=== PATIENT | female | born 1960 | race Caucasian/White ===

== ENCOUNTER 2021-05-14 17:30 | Inpatient (IN) | payer BC ==
[2021-05-14] MEDS ORDERED: ACETAMINOPHEN TAB 500 MG TAB PO STA (17:41)
[2021-05-14 18:09] LABS: Basophils # (A) 0.1 k/uL (0-0.2); Basophils % (A) 1 %; Eosinophils % (A) 0 %; HCT 44.7 % (34.0-46.0); HGB 14.6 gm/dL (11.4-16.0); Lymphocytes # (A) 0.7 k/uL (1.0-4.8); Lymphocytes % (A) 13 %; MCH 32.4 pg (25.0-35.0); MCHC 32.8 g/dL (31.0-37.0); MCV 98.7 fL (80.0-100.0); Mean Platelet Volume 8.6; Monocytes # (A) 0.6 k/uL (0-1.0); Monocytes % (A) 11 %; Neutrophils # (A) 3.6 k/uL (1.3-7.7); Neutrophils % (A) 71 %; Platelet Count 191 k/uL (150-450); Poikilocytosis Slight; RBC 4.53 m/uL (3.80-5.40); RDW 15.2 % (11.5-15.5)
[2021-05-14 18:11] LABS: Appearance,Urine Cloudy (Clear); Bilirubin,Urine Negative (Negative); Blood,Urine Trace (Negative); Color,Urine Yellow; Glucose,Urine (UA) Negative (Negative); Hyaline Casts,Urine 7 /lpf (0-2); Ketones,Urine Negative (Negative); Leukocyte Esterase,Urine Negative (Negative); Mucus,Urine Rare /hpf; Nitrite,Urine Negative (Negative); PH, Urine 5.5 (5.0-8.0); Protein,Urine 1+ (Negative); RBC,Urine 2 /hpf (0-5); Specific Gravity,Urine 1.017 (1.001-1.035); WBC,Urine 3 /hpf (0-5)
--- NOTE | 2021-05-14 18:11 | ED ---
General Adult HPI - General Chief complaint: Altered Mental Status Stated complaint: AMS Time Seen by Provider: 05/14/21 17:37 Source: patient, EMS Mode of arrival: EMS - History of Present Illness Initial comments: Dictation was produced using [employer]US dictation software. please excuse any grammatical, word or spelling errors. Chief Complaint: 61-year-old feel presents to the emergency department for altered mental status History of Present Illness: Patient 61-year-old female she is brought in by EMS from home. Patient lives with a roommate. Roommate called EMS. According to EMS patient had low oxygen and requiring oxygen therapy. Patient is too let hargic to provide history present illness. According to nurse received report from EMS EMS was called by . Upon EMS arrival they found the patient was satting in the low 80s and showing signs of respiratory distress. She was also febrile at 10 3F. Unable to obtain due to patient's medical status. PHYSICAL EXAM: General Impression: Dry mucous membranes, lethargic, obese HEENT: Normocephalic atraumatic, extra-ocular movements intact, pupils equal and reactive to light bilaterally Cardiovascular: Heart regular rate and rhythm Chest: Able to complete full sentences, no retractions, no tachypnea Abdomen: abdomen soft, non-tender, non-distended, no organomegaly Musculoskeletal: Pulses present and equal in all extremities, no peripheral edema Motor: no focal deficits noted Neurological: no focal motor or sensory deficits noted Skin: Intact with no visualized rashes ED course: 61-year-old female presents to the emergency department for pyrexia, altered mental status, lethargy hypoxia. Vital signs upon arrival shows temperature 102.5, heart rate 114, respiratory rate of 30, icy saturation 89 on 15 L nonrebreather. BiPAP was ordered. at the bedside states that earlier today he noticed that patient was difficult to wake up. Also reports that patient has been having EKG interpretation: Ventricular rate 150, sinus tachycardia,. Interval 150, QRS 80, QTC 470. No NM prolongation, no QTC prolongation, no ST or T-wave changes noted. No old EKG for comparison Soon also reports that has been seemingly sick since Shelli. Laboratory evaluation obtained. CBC is unremarkable. Coag panel is within acceptable limits. D-dimer 0.87. Metabolic panel is within acceptable limits troponins are 0.456. Rest of blood work is unremarkable. Patient described virus positive. Patient is elevated troponin is unclear what is causing patient's elevated troponin. D-dimer appears to be within reasonable limits considering she is COVID-19 positive with significant x-ray findings. Chest x- ray shows interstitial [place] is an bibasilar opacities. EKG does not show any signs of ischemia or infarction. Patient reevaluated at the bedside she does appear to be more improved. She does appear to be alert. She has stable vitals and is maintaining good oxygen levels on BiPAP. Patient be admitted. Case discussed with [facility] hospitalist group. Proc[employer]ment Forester be on consult. Patient given 10 mg of IV Decadron. - Related Data Home Medications Medication Instructions Recorded Confirmed No Known Home Medications 05/14/21 05/14/21 Allergies Allergy/AdvReac Type Severity Reaction Status Date / Time No Known Allergies Allergy Verified 05/14/21 18:58 Review of Systems ROS Statement: Those systems with pertinent positive or pertinent negative responses have been documented in the HPI. ROS Other: All systems not noted in ROS Statement are negative. Past Medical History Past Medical History: Hypertension History of Any Multi-Drug Resistant Organisms: None Reported Past Surgical History: Unable to Obtain Past Psychological History: No Psychological Hx Reported Smoking Status: Never smoker Past Alcohol Use History: None Reported Past Drug Use History: None Reported Course Vital Signs 05/14/21 17:31 Temperature 102.5 F H Pulse Rate 114 H Respiratory 38 H Rate Blood Pressure 104/77 O2 Sat by Pulse 89 L Oximetry Medical Decision Making - Lab Data Result diagrams: 05/14/21 17:53 05/14/21 17:53 Lab Results 05/14/21 05/14/21 05/14/21 Range/Units 17:44 17:53 17:53 WBC 5.0 (3.8-10.6) k/uL RBC 4.53 (3.80-5.40) m/uL Hgb 14.6 (11.4-16.0) gm/dL Hct 44.7 (34.0-46.0) % MCV 98.7 (80.0-100.0) fL MCH 32.4 (25.0-35.0) pg MCHC 32.8 (31.0-37.0) g/dL RDW 15.2 (11.5-15.5) % Plt Count 191 (150-450) k/uL MPV 8.6 Neutrophils % 71 % Lymphocytes % 13 % Monocytes % 11 % Eosinophils % 0 % Basophils % 1 % Neutrophils # 3.6 (1.3-7.7) k/uL Lymphocytes # 0.7 L (1.0-4.8) k/uL Monocytes # 0.6 (0-1.0) k/uL Eosinophils # 0.0 (0-0.7) k/uL Basophils # 0.1 (0-0.2) k/uL Poikilocytosis Slight PT 10.3 (9.0-12.0) sec INR 1.0 (<1.2) APTT 24.2 (22.0-30.0) sec D-Dimer 0.87 H (<0.60) mg/L FEU Sodium (137-145) mmol/L Potassium (3.5-5.1) mmol/L Chloride (98-107) mmol/L Carbon Dioxide (22-30) mmol/L Anion Gap mmol/L BUN (7-17) mg/dL Creatinine (0.52-1.04) mg/dL Est GFR (CKD-EPI)AfAm (>60 ml/min/1.73 sqM) Est GFR (CKD-EPI)NonAf (>60 ml/min/1.73 sqM) Glucose (74-99) mg/dL Plasma Lactic Acid Fabian (0.7-2.0) mmol/L Calcium (8.4-10.2) mg/dL Magnesium (1.6-2.3) mg/dL Total Bilirubin (0.2-1.3) mg/dL AST (14-36) U/L ALT (4-34) U/L Alkaline Phosphatase (38-126) U/L Troponin I (0.000-0.034) ng/mL C-Reactive Protein (<1.0) mg/dL NT-Pro-B Natriuret Pep pg/mL Total Protein (6.3-8.2) g/dL Albumin (3.5-5.0) g/dL Urine Color Urine Appearance (Clear) Urine pH (5.0-8.0) Ur Specific [place] (1.001-1.035) Urine Protein (Negative) Urine Glucose (UA) (Negative) Urine Ketones (Negative) Urine Blood (Negative) Urine Nitrite (Negative) Urine Bilirubin (Negative) Urine Urobilinogen (<2.0) mg/dL Ur Leukocyte Esterase (Negative) Urine RBC (0-5) /hpf Urine WBC (0-5) /hpf Hyaline Casts (0-2) /lpf Urine Mucus (None) /hpf Influenza Type A (PCR) Not Detected (Not Detectd) Influenza Type B (PCR) Not Detected (Not Detectd) RSV (PCR) Not Detected (Not Detectd) SARS-CoV-2 (PCR) Detected A (Not Detectd) 05/14/21 05/14/21 05/14/21 Range/Units 17:53 17:53 17:53 WBC (3.8-10.6) k/uL RBC (3.80-5.40) m/uL Hgb (11.4-16.0) gm/dL Hct (34.0-46.0) % MCV (80.0-100.0) fL MCH (25.0-35.0) pg MCHC (31.0-37.0) g/dL RDW (11.5-15.5) % Plt Count (150-450) k/uL MPV Neutrophils % % Lymphocytes % % Monocytes % % Eosinophils % % Basophils % % Neutrophils # (1.3-7.7) k/uL Lymphocytes # (1.0-4.8) k/uL Monocytes # (0-1.0) k/uL Eosinophils # (0-0.7) k/uL Basophils # (0-0.2) k/uL Poikilocytosis PT (9.0-12.0) sec INR (<1.2) APTT (22.0-30.0) sec D-Dimer (<0.60) mg/L FEU Sodium 139 (137-145) mmol/L Potassium 4.4 (3.5-5.1) mmol/L Chloride 101 (98-107) mmol/L Carbon Dioxide 25 (22-30) mmol/L Anion Gap 13 mmol/L BUN 32 H (7-17) mg/dL Creatinine 1.21 H (0.52-1.04) mg/dL Est GFR (CKD-EPI)AfAm 55 (>60 ml/min/1.73 sqM) Est GFR (CKD-EPI)NonAf 48 (>60 ml/min/1.73 sqM) Glucose 118 H (74-99) mg/dL Plasma Lactic Acid Fabian 1.2 (0.7-2.0) mmol/L Calcium 8.3 L (8.4-10.2) mg/dL Magnesium 1.8 (1.6-2.3) mg/dL Total Bilirubin 0.5 (0.2-1.3) mg/dL AST 82 H (14-36) U/L ALT 32 (4-34) U/L Alkaline Phosphatase 71 (38-126) U/L Troponin I 0.456 H* (0.000-0.034) ng/mL C-Reactive Protein 4.9 H (<1.0) mg/dL NT-Pro-B Natriuret Pep pg/mL Total Protein 6.9 (6.3-8.2) g/dL Albumin 3.6 (3.5-5.0) g/dL Urine Color Urine Appearance (Clear) Urine pH (5.0-8.0) Ur Specific [place] (1.001-1.035) Urine Protein (Negative) Urine Glucose (UA) (Negative) Urine Ketones (Negative) Urine Blood (Negative) Urine Nitrite (Negative) Urine Bilirubin (Negative) Urine Urobilinogen (<2.0) mg/dL Ur Leukocyte Esterase (Negative) Urine RBC (0-5) /hpf Urine WBC (0-5) /hpf Hyaline Casts (0-2) /lpf Urine Mucus (None) /hpf Influenza Type A (PCR) (Not Detectd) Influenza Type B (PCR) (Not Detectd) RSV (PCR) (Not Detectd) SARS-CoV-2 (PCR) (Not Detectd) 05/14/21 05/14/21 Range/Units 17:53 17:53 WBC (3.8-10.6) k/uL RBC (3.80-5.40) m/uL Hgb (11.4-16.0) gm/dL Hct (34.0-46.0) % MCV (80.0-100.0) fL MCH (25.0-35.0) pg MCHC (31.0-37.0) g/dL RDW (11.5-15.5) % Plt Count (150-450) k/uL MPV Neutrophils % % Lymphocytes % % Monocytes % % Eosinophils % % Basophils % % Neutrophils # (1.3-7.7) k/uL Lymphocytes # (1.0-4.8) k/uL Monocytes # (0-1.0) k/uL Eosinophils # (0-0.7) k/uL Basophils # (0-0.2) k/uL Poikilocytosis PT (9.0-12.0) sec INR (<1.2) APTT (22.0-30.0) sec D-Dimer (<0.60) mg/L FEU Sodium (137-145) mmol/L Potassium (3.5-5.1) mmol/L Chloride (98-107) mmol/L Carbon Dioxide (22-30) mmol/L Anion Gap mmol/L BUN (7-17) mg/dL Creatinine (0.52-1.04) mg/dL Est GFR (CKD-EPI)AfAm (>60 ml/min/1.73 sqM) Est GFR (CKD-EPI)NonAf (>60 ml/min/1.73 sqM) Glucose (74-99) mg/dL Plasma Lactic Acid Fabian (0.7-2.0) mmol/L Calcium (8.4-10.2) mg/dL Magnesium (1.6-2.3) mg/dL Total Bilirubin (0.2-1.3) mg/dL AST (14-36) U/L ALT (4-34) U/L Alkaline Phosphatase (38-126) U/L Troponin I (0.000-0.034) ng/mL C-Reactive Protein (<1.0) mg/dL NT-Pro-B Natriuret Pep 819 pg/mL Total Protein (6.3-8.2) g/dL Albumin (3.5-5.0) g/dL Urine Color Yellow Urine Appearance Cloudy H (Clear) Urine pH 5.5 (5.0-8.0) Ur Specific [place] 1.017 (1.001-1.035) Urine Protein 1+ H (Negative) Urine Glucose (UA) Negative (Negative) Urine Ketones Negative (Negative) Urine Blood Trace H (Negative) Urine Nitrite Negative (Negative) Urine Bilirubin Negative (Negative) Urine Urobilinogen 2.0 (<2.0) mg/dL Ur Leukocyte Esterase Negative (Negative) Urine RBC 2 (0-5) /hpf Urine WBC 3 (0-5) /hpf Hyaline Casts 7 H (0-2) /lpf Urine Mucus Rare H (None) /hpf Influenza Type A (PCR) (Not Detectd) Influenza Type B (PCR) (Not Detectd) RSV (PCR) (Not Detectd) SARS-CoV-2 (PCR) (Not Detectd) Critical Care Time Critical Care Time: Yes Total Critical Care Time: 33 Disposition Clinical Impression: COVID-19 Disposition: ADMITTED IP TO THIS HOSP Condition: Critical Referrals: None,Stated [Primary Care Provider] - 1-2 days
--- NOTE | 2021-05-14 18:17 | XR ---
EXAMINATION TYPE: XR chest 1V portable DATE OF EXAM: 05/14/2021 COMPARISON: NONE HISTORY: 61 years Female. STUDY INDICATION GIVEN: hypoxia . TECHNIQUE: AP upright chest radiograph IMPRESSION: Moderate cardiomegaly bilateral interstitial opacities suggestive of congestive heart failure. Patchy-like bibasilar opacities concerning for superimposed infection. Small to moderate right pleural effusion. No large left-sided effusion. No pneumothorax. No acute osseous abnormalities seen.
[2021-05-14 18:29] LABS: Albumin 3.6 g/dL (3.5-5.0); C Reactive Protein 4.9 mg/dL (<1.0); Calcium 8.3 mg/dL (8.4-10.2); Magnesium 1.8 mg/dL (1.6-2.3); Potassium 4.4 mmol/L (3.5-5.1); Total Bilirubin 0.5 mg/dL (0.2-1.3); Total Protein 6.9 g/dL (6.3-8.2)
[2021-05-14 18:37] LABS: Partial Thromboplastin Time 24.2 sec (22.0-30.0); Prothrombin Time 10.3 sec (9.0-12.0)
[2021-05-14] MEDS ORDERED: DEXAMETHASONE SOD PHOSPHATE 10 MG/ML 1 ML VIAL IV STA (18:51)
[2021-05-14] MEDS ORDERED: HEPARIN SODIUM 1,000 UN/ML (10ML VL) IV ONE (19:13)
[2021-05-14] MEDS ORDERED: ASPIRIN 81 MG PO STA (19:15)
[2021-05-14] MEDS ORDERED: ACETAMINOPHEN TAB 325 MG TAB PO PRN (19:16)
[2021-05-14] MEDS ORDERED: NALOXONE 0.4 MG/ML 1 ML VIAL IV PRN (19:16)
[2021-05-14] MEDS: SODIUM CHLORIDE 0.9% 1,000 ML IV SCH (20:20)
[2021-05-14] MEDS: HEPARIN SOD,PORK IN 0.45% NACL 25,000 UNIT in 0.45% NACL 1 250ML.BAG IV SCH (20:22)
[2021-05-15] MEDS: HEPARIN SODIUM 1,000 UN/ML (10ML VL) IV PRN ×2 (03:51→20:16)
[2021-05-15 09:42] LABS: Chol/HDL Ratio 6.67 Ratio; LDL Cholesterol,Calculated 105.8 mg/dL (0.0-131.0)
[2021-05-15 13:14] LABS: C Reactive Protein 4.4 mg/dL (<1.0)
[2021-05-15] MEDS: ASCORBIC ACID 500 MG TAB PO SCH (14:18)
[2021-05-15] MEDS: ZINC SULFATE 220 MG CAP PO SCH (14:19)
[2021-05-15] MEDS: BARICITINIB 2 MG TABLET PO SCH (14:19)
[2021-05-15] MEDS: CHOLECALCIFEROL 25 MCG (1000 IU) TABLET PO SCH (14:19)
[2021-05-15] MEDS: DEXAMETHASONE SOD PHOSPHATE 10 MG/ML 1 ML VIAL IVP SCH (14:19)
[2021-05-15 14:23] LABS: Glucose,Whole Blood 114 mg/dL (75-99)
--- NOTE | 2021-05-15 17:25 | P.CNPUL ---
History of Present Illness Consult date: 05/15/21 Reason for consult: dyspnea, pneumonia History of present illness: This is a 61-year-old female patient, obese with a BMI of 46.7, who is currently Hospital as for COVID 19 related pneumonia. Note that the patient is vaccinated earlier this year and she received a [employer] single dose vaccine. Around 2 weeks ago, specifically around 13 days ago, the patient started having COVID 19 related symptoms. She started having some increased cough and progressive worsening shortness of breath. Her symptoms started on 05/02/2021. She was getting progressively more worse and the patient was brought in to the burst department by EMS. The patient was found to be lethargic and weak and short of breath. She was quite hypoxic and she was febrile with a temperature 103F. Immediately, the patient was placed on a BiPAP at a pressure of 12/6 cm of water and FiO2 is currently at 70%. Note that the patient was tachycardic and tachypneic at time of admission which has improved since. The patient a white cell count of 5 with a hemoglobin of 14.6, albumin was at 32 with a creatinine of 1.2. She had normal correlation profile, normal d-dimer was 0.87, LFTs showed an AST of 82, ALT of 32, alkaline phosphatase of 71 with a troponin level of 0.456 at time of admission. CRP level was at 4.9, total protein was at 6.9, electrolytes are warm within normal limits. The patient had a UA that was essentially showing +1 protein otherwise negative. COVID 19 testing was positive. Note that the subsequent troponins came back at 0.683 and 0.561 respectively. The patient is currently on Decadron 6 mg IV every 24 hours. The patient is also on IV heparin. She is comfortable on the BiPAP. No altered mentation. Review of Systems Constitutional: Reports fatigue, Reports fever, Reports lethargy, Reports weakness Eyes: denies as per HPI, denies blurred vision, denies bulging eye, denies decreased vision, denies diplopia, denies discharge, denies dry eye, denies irritation, denies itching, denies pain, denies photophobia, denies loss of peripheral vision, denies loss of vision, denies tunnel vision/blind spots Ears: deny: decreased hearing, ear discharge, earache, tinnitus Ears, nose, mouth and throat: Reports as per HPI Breasts: absent: as per HPI, change in shape, gynecomastia, masses, nipple discharge, pain, skin changes, swelling Cardiovascular: Reports as per HPI, Reports decreased exercise tolerance, Reports dyspnea on exertion Respiratory: Reports cough, Reports dyspnea Gastrointestinal: Reports as per HPI Genitourinary: Reports as per HPI Menstruation: Reports as per HPI Musculoskeletal: Reports as per HPI Musculoskeletal: absent: ankle pain, ankle stiffness, ankle swelling Integumentary: Reports as per HPI Neurological: Reports as per HPI Psychiatric: Reports as per HPI Endocrine: Reports as per HPI, Reports fatigue Hematologic/Lymphatic: Reports as per HPI Allergic/Immunologic: Reports as per HPI Past Medical History Past Medical History: Hypertension Additional Past Medical History / Comment(s): Obesity, History of Any Multi-Drug Resistant Organisms: None Reported Past Surgical History: Unable to Obtain Past Psychological History: No Psychological Hx Reported Smoking Status: Never smoker Past Alcohol Use History: None Reported Past Drug Use History: None Reported Medications and Allergies Home Medications Medication Instructions Recorded Confirmed Type No Known Home Medications 05/14/21 05/14/21 History Allergies Allergy/AdvReac Type Severity Reaction Status Date / Time No Known Allergies Allergy Verified 05/14/21 18:58 Physical Exam Vitals: Vital Signs Temp Pulse Pulse Resp BP BP Pulse Ox 05/15/21 11:04 98.2 F 69 17 118/71 93 L 05/15/21 07:45 98.1 F 65 20 126/73 94 L 05/15/21 05:18 99.1 F 67 18 140/78 95 05/15/21 03:11 19 05/15/21 02:19 98.6 F 88 19 146/78 95 05/15/21 01:00 68 28 H 120/70 05/15/21 00:00 72 26 H 124/72 95 05/14/21 23:00 78 18 112/87 92 L 05/14/21 22:19 99.1 F 80 20 120/70 92 L 05/14/21 20:16 84 24 120/62 90 L 05/14/21 17:31 102.5 F H 114 H 38 H 104/77 89 L Intake and Output 05/14/21 05/15/21 05/15/21 22:59 06:59 14:59 Intake Total 72.833 400 Output Total 700 Balance -627.167 400 Intake: Intake, IV Titration 72.833 Amount Heparin Sod,Pork in 0.45% 72.833 NaCl 25,000 unit In 0.45 % NaCl 1 250ml.bag @ 8. 105 UNITS/KG/HR 10 mls/hr IV .Q24H [facility] Rx#: [id number] Oral 0 400 Output: Urine 700 Other: Weight 123.377 kg 123.377 kg General Impression: Dry mucous membranes, lethargic, obese, breathing is much more comfortable as the patient's current antibiotic impression of 04/21 and the means of water with an FiO2 of 70%. She is able to tolerate a full face BiPAP mask. Head exam was generally normal. There was no scleral icterus or corneal arcus. Mucous membranes were moist. HEENT: Normocephalic atraumatic, extra-ocular movements intact, pupils equal and reactive to light bilaterally Cardiovascular: Heart regular rate and rhythm Chest: Lung sounds reveal equal and symmetrical breath sounds bilaterally with some bibasilar crackles Abdomen: abdomen soft, non-tender, non-distended, no organomegaly Musculoskeletal: Pulses present and equal in all extremities, no peripheral edema Motor: no focal deficits noted Neurological: no focal motor or sensory deficits noted Skin: Intact with no visualized rashes Results - Laboratory Findings CBC and BMP: 05/14/21 17:53 05/14/21 17:53 PT/INR, D-dimer PT 10.3 sec (9.0-12.0) 05/14/21 17:53 INR 1.0 (<1.2) 05/14/21 17:53 D-Dimer 0.87 mg/L FEU (<0.60) H 05/14/21 17:53 Abnormal lab findings: Abnormal Labs 05/14/21 05/14/21 05/14/21 17:44 17:53 17:53 Lymphocytes # 0.7 L APTT D-Dimer 0.87 H BUN Creatinine Glucose Calcium AST Troponin I C-Reactive Protein Triglycerides HDL Cholesterol Urine Appearance Urine Protein Urine Blood Hyaline Casts Urine Mucus SARS-CoV-2 (PCR) Detected A 05/14/21 05/14/21 05/14/21 17:53 17:53 17:53 Lymphocytes # APTT D-Dimer BUN 32 H Creatinine 1.21 H Glucose 118 H Calcium 8.3 L AST 82 H Troponin I 0.456 H* C-Reactive Protein 4.9 H Triglycerides HDL Cholesterol Urine Appearance Cloudy H Urine Protein 1+ H Urine Blood Trace H Hyaline Casts 7 H Urine Mucus Rare H SARS-CoV-2 (PCR) 05/14/21 05/14/21 05/15/21 17:53 21:33 00:19 Lymphocytes # APTT D-Dimer BUN Creatinine Glucose Calcium AST Troponin I 0.683 H* 0.561 H* C-Reactive Protein Triglycerides 168.00 H HDL Cholesterol 24.60 L Urine Appearance Urine Protein Urine Blood Hyaline Casts Urine Mucus SARS-CoV-2 (PCR) 05/15/21 09:10 Lymphocytes # APTT 64.1 H D-Dimer BUN Creatinine Glucose Calcium AST Troponin I C-Reactive Protein Triglycerides HDL Cholesterol Urine Appearance Urine Protein Urine Blood Hyaline Casts Urine Mucus SARS-CoV-2 (PCR) - Diagnostic Findings Chest x-ray: image reviewed Assessment and Plan Plan: 1 acute hypoxic respiratory failure secondary COVID 19 related pneumonia. The patient symptoms started on 05/02/2021 and the patient progressive decline in her rest her status since. The patient is been vaccinated with [employer] vaccine earlier this year. The patient is coming in with worsening shortness of breath and hypoxic respiratory failure currently on a BiPAP at a pressure of 12/6 cm of water and FiO2 of 70%. 2 acute coronary event related pneumonia symptoms started on 05/02/2021 3 generalized weakness and constant pressure symptoms secondary to above 4 obesity with a BMI of 46.7 5 mild transaminitis secondary to above 6 abnormal troponin, troponin leak essentially related to oxygen mismatch due to COVID 19 related pneumonia. Patient's free of any chest pain, and EKG showing some nonspecific ST-T abnormalities without any acute ischemic changes. Cardiac rhythm is sinus. 7 hypertension Plan Continue BiPAP for now with pressure of 12/7 FiO2 of 70%, and FiO2 can be titrated down to maintain a saturation above 90% Continue Decadron significant every 24 hours Start the patient on Baricitinib protocol Pro-calcitonin level will be sent IV heparin pending cardiology consultation Obtain 2-D echocardiogram Check inflammatory markers including LDH CRP Start the patient vitamin C and vitamin D and zinc supplements We'll continue to follow make further recommendations based on her progress.
--- NOTE | 2021-05-16 00:32 | P.HPIM ---
History of Present Illness H&P Date: 05/16/21 Chief Complaint: Generalized weakness Patient is a 61-year-old female with a known history of hypertension, morbid obesity with BMI 46.7 presented to ER with complaints of cough congestion worsening shortness of breath. Patient symptoms started about 2 weeks ago. She did take Raúl & Raúl vaccine. Patient was brought to the hospital by EMS. Patient lives with a roommate. Upon arrival patient was found to be hypoxic with pulse ox in the 80s and was in respiratory distress. T-max was 103 F. Patient was placed on 100% nonrebreather and BiPAP. Chest x-ray showed moderate cardiomegaly, bilateral interstitial opacities suggestive of CHF. Patchy-like bibasilar opacities concerning for superimposed infection. EKG showed sinus tachycardia with premature atrial complexes Laboratory data showed WBC 5.0 hemoglobin 14.6 and platelets 191 lymphocytes 0.7 D-dimer is 0.87 BUN 3020 creatinine 1.21 Troponin 0 0.456, 0.683 and 0.561 Urinalysis showed cloudy with 1+ protein and negative leukocyte esterase COVID-19 PCR detected. Review of Systems Constitutional: Patient does have fever chills and generalized weakness and lethargy.. Abdomen: Patient denied nausea vomiting and diarrhea and abdominal pain. Cardiovascular: Patient denies any chest pain or short of breath no palpitations. Respiratory: Patient does have cough congestion and shortness of breath. Neurologic: Patient denied any numbness or tingling headache. Musculoskeletal: Patient denies any complaints of joint swelling or deformity. Skin: Negative Psychiatric: Negative Endocrine: No heat or cold intolerance. No recent weight gain. Genitourinary: No dysuria or hematuria. All other 14 point ROS negative except the above Past Medical History Past Medical History: Hypertension Additional Past Medical History / Comment(s): Obesity, History of Any Multi-Drug Resistant Organisms: None Reported Past Surgical History: Unable to Obtain Past Psychological History: No Psychological Hx Reported Smoking Status: Never smoker Past Alcohol Use History: None Reported Past Drug Use History: None Reported Medications and Allergies Home Medications Medication Instructions Recorded Confirmed Type No Known Home Medications 05/14/21 05/14/21 History Allergies Allergy/AdvReac Type Severity Reaction Status Date / Time No Known Allergies Allergy Verified 05/14/21 18:58 Physical Exam Vitals: Vital Signs Temp Pulse Pulse Resp BP BP Pulse Ox 05/15/21 23:56 98.1 F 82 20 112/67 91 L 05/15/21 21:06 94 L 05/15/21 20:19 97.7 F 82 18 120/67 94 L 05/15/21 18:49 97.8 F 68 17 101/67 93 L 05/15/21 11:04 98.2 F 69 17 118/71 93 L 05/15/21 07:45 98.1 F 65 20 126/73 94 L 05/15/21 05:18 99.1 F 67 18 140/78 95 05/15/21 03:11 19 05/15/21 02:19 98.6 F 88 19 146/78 95 05/15/21 01:00 68 28 H 120/70 Intake and Output 05/15/21 05/15/21 05/16/21 14:59 22:59 06:59 Intake Total 578 177.167 Output Total 350 Balance 578 -172.833 Intake: Intake, IV Titration 177.167 Amount Heparin Sod,Pork in 0.45% 177.167 NaCl 25,000 unit In 0.45 % NaCl 1 250ml.bag @ 8. 105 UNITS/KG/HR 10 mls/hr IV .Q24H [facility] Rx#: [id number] Oral 578 Output: Urine 350 PHYSICAL EXAMINATION: Patient is lying in the bed comfortably, no acute distress, awake alert and oriented.. HEENT: Normocephalic. Neck is supple. Pupils reactive. Nostrils clear. Oral cavity is moist. Neck reveals no JVD, carotid bruits, or thyromegaly. CHEST EXAMINATION: Trachea is central. Symmetrical expansion. Scattered coarse sounds. Nonlabored breathing.. CARDIAC: Normal S1, S2 with no gallops. No murmurs ABDOMEN: Soft. Bowel sounds normal. No organomegaly. No abdominal bruits. Extremities: reveal no edema. No clubbing or cyanosis Neurologically awake, alert, oriented x3 with well-coordinated movements. No focal deficits noted Skin: No rash or skin lesions. Psychiatric: Cooperative. Nonsuicidal Musculoskeletal: No joint swelling or deformity. Normal range of motion. Results CBC & Chem 7: 05/14/21 17:53 05/14/21 17:53 Labs: Abnormal Lab Results - Last 24 Hours (Table) 05/14/21 05/15/21 05/15/21 Range/Units 17:53 00:19 09:10 APTT 64.1 H (22.0-30.0) sec D-Dimer (<0.60) mg/L FEU POC Glucose (mg/dL) (75-99) mg/dL Lactate Dehydrogenase (313-618) U/L Troponin I 0.561 H* (0.000-0.034) ng/mL C-Reactive Protein (<1.0) mg/dL Triglycerides 168.00 H (0.00-149.00) mg/dL HDL Cholesterol 24.60 L (40.00-60.00) mg/dL Procalcitonin (0.02-0.09) ng/mL 05/15/21 05/15/21 05/15/21 Range/Units 09:10 09:10 09:10 APTT (22.0-30.0) sec D-Dimer 0.89 H (<0.60) mg/L FEU POC Glucose (mg/dL) (75-99) mg/dL Lactate Dehydrogenase 1093 H (313-618) U/L Troponin I (0.000-0.034) ng/mL C-Reactive Protein 4.4 H (<1.0) mg/dL Triglycerides (0.00-149.00) mg/dL HDL Cholesterol (40.00-60.00) mg/dL Procalcitonin 0.39 H (0.02-0.09) ng/mL 05/15/21 Range/Units 14:22 APTT (22.0-30.0) sec D-Dimer (<0.60) mg/L FEU POC Glucose (mg/dL) 114 H (75-99) mg/dL Lactate Dehydrogenase (313-618) U/L Troponin I (0.000-0.034) ng/mL C-Reactive Protein (<1.0) mg/dL Triglycerides (0.00-149.00) mg/dL HDL Cholesterol (40.00-60.00) mg/dL Procalcitonin (0.02-0.09) ng/mL Thrombosis Risk Factor Assmnt - DVT/VTE Prophylaxis DVT/VTE Prophylaxis: Pharmacologic Prophylaxis ordered - Choose All That Apply Each Factor Represents 1 point: Obesity (BMI >25) Each Risk Factor Represents 2 Points: Age 61-74 years Thrombosis Risk Factor Assessment Total Risk Factor Score: 3 Thrombosis Risk Factor Assessment Level: Moderate Risk Assessment and Plan Assessment: Acute hypoxic respiratory failure requiring BiPAP secondary to COVID-19 pneumonia. Symptoms started 2 weeks ago. Patient is vaccinated with Ra[employer]l [employer] Ra[employer]l single dose. Generalized weakness lethargic secondary 1 Elevated troponin level possible demand mismatch due to infection and hypoxia. Morbid obesity BMI 46.7 Hypertension DVT prophylaxis on heparin Drip Plan: Patient is currently on 15 L high flow oxygen. Initially was on BiPAP. Continue to titrate down FiO2. Continue with dexamethasone and Lovenox subcu. Continue with vitamin supplementation. Patient was started on baricitinib as per pulmonary recommendations. Patient was started on Cardizem drip and cardiology will be consulted. Prognosis is guarded at this time. Time with Patient: Greater than 30
[2021-05-16 03:45] LABS: Basophils % (A) 0 %; Eosinophils % (A) 0 %; HCT 43.8 % (34.0-46.0); HGB 14.3 gm/dL (11.4-16.0); Hypochromasia Slight; Lymphocytes # (A) 0.6 k/uL (1.0-4.8); Lymphocytes % (A) 12 %; MCH 32.7 pg (25.0-35.0); MCHC 32.7 g/dL (31.0-37.0); Macrocytosis Slight; Mean Platelet Volume 8.4; Monocytes # (A) 0.5 k/uL (0-1.0); Monocytes % (A) 8 %; Neutrophils # (A) 4.2 k/uL (1.3-7.7); Neutrophils % (A) 77 %; Platelet Count 256 k/uL (150-450); Poikilocytosis Slight; RBC 4.38 m/uL (3.80-5.40); RDW 15.8 % (11.5-15.5); WBC 5.5 k/uL (3.8-10.6)
[2021-05-16 04:43] LABS: Albumin 3.4 g/dL (3.5-5.0); C Reactive Protein 2.5 mg/dL (<1.0); Calcium 8.6 mg/dL (8.4-10.2); Potassium 4.3 mmol/L (3.5-5.1); Total Bilirubin 0.4 mg/dL (0.2-1.3); Total Protein 6.7 g/dL (6.3-8.2)
[2021-05-16] MEDS: SODIUM CHLORIDE 0.9% 1,000 ML IV SCH (06:09)
[2021-05-16] MEDS: HEPARIN SOD,PORK IN 0.45% NACL 25,000 UNIT in 0.45% NACL 1 250ML.BAG IV SCH (06:09)
[2021-05-16] MEDS: ASCORBIC ACID 500 MG TAB PO SCH (08:24)
[2021-05-16] MEDS: ZINC SULFATE 220 MG CAP PO SCH (08:24)
[2021-05-16] MEDS: DEXAMETHASONE SOD PHOSPHATE 10 MG/ML 1 ML VIAL IVP SCH (08:24)
[2021-05-16] MEDS: CHOLECALCIFEROL 25 MCG (1000 IU) TABLET PO SCH (08:24)
[2021-05-16] MEDS: BARICITINIB 2 MG TABLET PO SCH (11:28)
--- NOTE | 2021-05-16 11:49 | ECHOF ---
Referral Reason:elevated troponin MEASUREMENTS -------- HEIGHT: 162.6 cm WEIGHT: 123.4 kg BP: IVSd: 1.4 cm (0.6 - 1.1) LVIDd: 4.4 cm (3.9 - 5.3) LVPWd: 1.4 cm (0.6 - 1.1) EDV(Teich): 88 ml IVSs: 2.0 cm LVIDs: 2.4 cm LVPWs: 2.3 cm %IVS Thck: 44 % ESV(Teich): 21 ml EF(Teich): 76 % %FS: 45 % SV(Teich): 67 ml RVIDd: 3.2 cm (< 3.3) TR Vmax: 2.22 m/s TR maxP.79 mmHg RAP: 5.00 mmHg RVSP: 24.79 mmHg FINDINGS -------- This was a technically difficult study with suboptimal views. Limited study due to covid 19 exposur e. The left ventricular size is normal. There is moderate concentric left ventricular hypertrophy. O verall left ventricular systolic function is normal with, an EF between 55 - 60 %. Lumason used There is no pericardial effusion. CONCLUSIONS -------- 1. Limited study due to covid 19 exposure. 2. The left ventricular size is normal. 3. There is moderate concentric left ventricular hypertrophy. 4. Overall left ventricular systolic function is normal with, an EF between 55 - 60 %. 5. There is no pericardial effusion. MICROFILM TECHNICIAN: uEnice Shrestha RDCS
--- NOTE | 2021-05-16 11:59 | P.CRDCN ---
History of Present Illness History of present illness: HISTORY OF PRESENTING ILLNESS This is a pleasant 61-year-old female past medical history significant for hypertension in the past, not currently on medication. She does not follow with a family resource coordinator. We have been asked to see in consultation for elevated troponin. Patient presents to the emergency department with complaints of shortness of breath, cough and fever. She was getting progressively more worse and the patient was brought in to the burst department by EMS. Patient was found to be hypoxic, temperature of 103F, patient was placed on Bipap. She is seen and examined at bedside, no acute distress. She states her breathing has improved since admission. She is currently on high flow nasal cannula 15L. She denies any chest discomfort. She denies history of CAD, AR, Stroke or hyperlipidemia. She denies tobacco use. She denies any family history of CAD. DIAGNOSTICS EKG on admission revealed sinus tachycardia with PACs, no significant ST-T wave abnormalities. Telemetry tracings indicate sinus mechanism, heart rate 60s80s Chest xray bilateral interstitial opacities, patchy-like bibasal opacities concerning for superimposed infection, small to moderate right pleural effusion Laboratory reviewed, troponin 0.5, 0.6, 0.4, sodium 138, potassium 4.3, BUN 52, serum creatinine 1.06, WBC 5.5, 14.3, platelets 256, d-dimer 0.89, covid-19 positive Current home medications include none. REVIEW OF SYSTEMS At the time of my exam: CONSTITUTIONAL: Denies fever or chills. CARDIOVASCULAR: Denies chest pain,+ shortness of breath, Denies orthopnea, PND or palpitations. RESPIRATORY: Denies cough. GASTROINTESTINAL: Denies abdominal pain, diarrhea, constipation, nausea or vomiting. MUSCULOSKELETAL: Denies myalgias. NEUROLOGIC: Denies numbness, tingling, headache or weakness. ENDOCRINE: Denies fatigue, weight change, polydipsia or polyurina. GENITOURINARY: Denies burning, hematuria or urgency with micturation. HEMATOLOGIC: Denies history of anemia or bleeding. PHYSICAL EXAMINATION Blood pressure 116/78, HR 63, afebrile, 95% on 15L high flow nasal cannula CONSTITUTIONAL: No apparent distress. HEENT: Head is normocephalic. Pupils are equal, round. Sclerae anicteric. Mucous membranes of the mouth are moist. No JVD. CHEST EXAMINATION: Lungs with some mild crackles in bilateral bases to auscultation. HEART EXAMINATION: Regular rate and rhythm. S1, S2 heard. ABDOMEN: Soft, nontender. Positive bowel sounds. EXTREMITIES: 2+ peripheral pulses, no lower extremity edema and no calf tenderness. NEUROLOGIC EXAMINATION: Patient is awake, alert and oriented x3. ASSESSMENT Elevated troponin, likely type 2 myocardial injury due to supply and demand mismatch due to covid-19 pneumonia, Patient without chest pain, and EKG showing some nonspecific ST-T abnormalities without any acute ischemic changes. Acute hypoxic respiratory failure COVID-19 Pneumonia Obesity BMI 46 PLAN Obtain 2D echocardiogram and doppler study to assess cardiac structure and function. Patient without any chest pain and EKG with no evidence of acute ischemia. Echocardiogram revealed EF 55-60%, no pericardial effusion. We will sign off at this time. Please reach out with questions or concerns. Patient may follow up as an outpatient. Thank you kindly for this consultation. Nurse Practitioner note has been reviewed, I agree with a documented findings and plan of care. Patient was seen and examined. Past Medical History Past Medical History: Hypertension Additional Past Medical History / Comment(s): Obesity, History of Any Multi-Drug Resistant Organisms: None Reported Past Surgical History: Unable to Obtain Past Psychological History: No Psychological Hx Reported Smoking Status: Never smoker Past Alcohol Use History: None Reported Past Drug Use History: None Reported Medications and Allergies Home Medications Medication Instructions Recorded Confirmed Type No Known Home Medications 05/14/21 05/14/21 History Allergies Allergy/AdvReac Type Severity Reaction Status Date / Time No Known Allergies Allergy Verified 05/14/21 18:58 Physical Exam Vitals: Vital Signs Temp Pulse Resp BP Pulse Ox 05/16/21 04:37 97.8 F 67 18 114/64 91 L 05/16/21 02:00 20 05/15/21 23:56 98.1 F 82 20 112/67 91 L 05/15/21 21:06 94 L 05/15/21 20:19 97.7 F 82 18 120/67 94 L 05/15/21 18:49 97.8 F 68 17 101/67 93 L 05/15/21 11:04 98.2 F 69 17 118/71 93 L 05/15/21 07:45 98.1 F 65 20 126/73 94 L Intake and Output 05/15/21 05/16/21 05/16/21 22:59 06:59 14:59 Intake Total 177.167 550 Output Total 350 700 Balance -172.833 -150 Intake: Intake, IV Titration 177.167 Amount Heparin Sod,Pork in 0.45% 177.167 NaCl 25,000 unit In 0.45 % NaCl 1 250ml.bag @ 8. 105 UNITS/KG/HR 10 mls/hr IV .Q24H [facility] Rx#: [id number] Blood Product 550 Output: Urine 350 700 Results 05/16/21 03:09 05/16/21 03:09 Cardiac Enzymes 05/15/21 05/16/21 Range/Units 09:10 03:09 AST 62 H (14-36) U/L Lactate Dehydrogenase 1093 H 854 H (313-618) U/L Coagulation 05/15/21 05/15/21 05/16/21 Range/Units 09:10 19:12 03:09 APTT 64.1 H 24.4 49.4 H (22.0-30.0) sec Lipids 05/14/21 Range/Units 17:53 Triglycerides 168.00 H (0.00-149.00) mg/dL Cholesterol 164.00 (0.00-200.00) mg/dL HDL Cholesterol 24.60 L (40.00-60.00) mg/dL Cholesterol/HDL Ratio 6.67 Ratio CBC 05/16/21 Range/Units 03:09 WBC 5.5 (3.8-10.6) k/uL RBC 4.38 (3.80-5.40) m/uL Hgb 14.3 (11.4-16.0) gm/dL Hct 43.8 (34.0-46.0) % Plt Count 256 (150-450) k/uL Comprehensive Metabolic Panel 05/16/21 Range/Units 03:09 Sodium 138 (137-145) mmol/L Potassium 4.3 (3.5-5.1) mmol/L Chloride 103 (98-107) mmol/L Carbon Dioxide 26 (22-30) mmol/L BUN 52 H (7-17) mg/dL Creatinine 1.06 H (0.52-1.04) mg/dL Glucose 150 H (74-99) mg/dL Calcium 8.6 (8.4-10.2) mg/dL AST 62 H (14-36) U/L ALT 28 (4-34) U/L Alkaline Phosphatase 65 (38-126) U/L Total Protein 6.7 (6.3-8.2) g/dL Albumin 3.4 L (3.5-5.0) g/dL Current Medications Generic Name Dose Route Start Last Admin Trade Name Freq PRN Reason Stop Dose Admin Acetaminophen 650 mg 05/14/21 19:16 05/15/21 11:07 Acetaminophen Tab 325 Mg Tab PO 650 mg Q6HR PRN Administration Mild Pain or Fever > 100.5 Ascorbic Acid 1,000 mg 05/15/21 11:30 05/15/21 14:18 Ascorbic Acid 500 Mg Tab PO 1,000 mg DAILY BOB Administration Baricitinib 2 mg 05/15/21 12:00 05/15/21 14:19 Baricitinib 2 Mg Tablet PO 05/28/21 12:01 2 mg DAILY@1200 BOB Administration Cholecalciferol 25 mcg 05/15/21 11:30 05/15/21 14:19 Cholecalciferol 25 Mcg (1000 Iu) Tablet PO 25 mcg DAILY BOB Administration Dexamethasone Sodium Phosphate 6 mg 05/15/21 11:30 05/15/21 14:19 Dexamethasone Sod Phosphate 10 Mg/Ml 1 Ml Vial IVP 6 mg DAILY BOB Administration Heparin Sodium (Porcine) 0 unit 05/14/21 19:13 05/15/21 20:16 Heparin Sodium 1,000 Un/Ml (10ml Vl) IV 6,000 unit PER PROTOCOL PRN Administration Low PTT Protocol Heparin Sodium/Sodium Chloride 250 mls @ 10 mls/hr 05/14/21 19:15 05/16/21 06:09 25,000 unit/ Sodium Chloride IV Not Given .Q24H BOB Protocol 8.105 UNITS/KG/HR Sodium Chloride 1,000 mls @ 20 mls/hr 05/14/21 19:30 05/16/21 06:09 Saline 0.9% IV Not Given .Q24H [facility] Naloxone HCl 0.2 mg 05/14/21 19:16 Naloxone 0.4 Mg/Ml 1 Ml Vial IV Q2M PRN Opioid Reversal Zinc Sulfate 220 mg 05/15/21 11:30 05/15/21 14:19 Zinc Sulfate 220 Mg Cap PO 220 mg DAILY BOB Administration Intake and Output 05/15/21 05/16/21 05/16/21 22:59 06:59 14:59 Intake Total 177.167 550 Output Total 350 700 Balance -172.833 -150 Intake: Intake, IV Titration 177.167 Amount Heparin Sod,Pork in 0.45% 177.167 NaCl 25,000 unit In 0.45 % NaCl 1 250ml.bag @ 8. 105 UNITS/KG/HR 10 mls/hr IV .Q24H [facility] Rx#: [id number] Blood Product 550 Output: Urine 350 700 05/16/21 03:09 05/16/21 03:09
--- NOTE | 2021-05-16 14:36 | P.PN ---
Subjective Progress Note Date: 05/16/21 This is a 61-year-old female patient, obese with a BMI of 46.7, who is currently Hospital as for COVID 19 related pneumonia. Note that the patient is vaccinated earlier this year and she received a Ra[employer]l [employer] Ra[employer]l single dose vaccine. Around 2 weeks ago, specifically around 13 days ago, the patient started having COVID 19 related symptoms. She started having some increased cough and progressive worsening shortness of breath. Her symptoms started on 05/02/2021. She was getting progressively more worse and the patient was brought in to the burst department by EMS. The patient was found to be lethargic and weak and short of breath. She was quite hypoxic and she was febrile with a temperature 103F. Immediately, the patient was placed on a BiPAP at a pressure of 12/6 cm of water and FiO2 is currently at 70%. Note that the patient was tachycardic and tachypneic at time of admission which has improved since. The patient a white cell count of 5 with a hemoglobin of 14.6, albumin was at 32 with a creatinine of 1.2. She had normal correlation profile, normal d-dimer was 0.87, LFTs showed an AST of 82, ALT of 32, alkaline phosphatase of 71 with a troponin level of 0.456 at time of admission. CRP level was at 4.9, total protein was at 6.9, electrolytes are warm within normal limits. The patient had a UA that was essentially showing +1 protein otherwise negative. COVID 19 testing was positive. Note that the subsequent troponins came back at 0.683 and 0.561 respectively. The patient is currently on Decadron 6 mg IV every 24 hours. The patient is also on IV heparin. She is comfortable on the BiPAP. No altered mentation. On today's evaluation of 05/16/2021, the patient is being seen for a follow-up. Clinically the patient is feeling better compared to yesterday. She is much more alert and awake and communicating on today's evaluation. She remains on oxygen at 15. Liters nasal cannula. She is hemodynamically stable. She is unable to fully expand her lungs because of some pain and cough and. Otherwise, she has no fever. The patient was advised of 5.5 and hemoglobin 14.3. The patient's electrodes are all within normal limits, BUN is a 52 with a creatinine of 1.06, the patient's LDH level is at 854 with a CRP of 2.5 and the numbers are improving compared to yesterday. The pro calcitonin level is at 0.39. I had opportunity to wean this patient's FiO2 down to 10 L from 15 L there was being used yesterday. Meanwhile, the patient is being covered with a combination of Decadron 6 mg IV every 24 hours and the patient is also on Baricitinib per maureen col 2 mg on a daily basis. The patient was also taken off the IV heparin and the patient will be started on Lovenox for DVT prophylaxis. Objective - Vital Signs Vital signs: Vital Signs Temp 98.0 F 05/16/21 12:13 Pulse 80 05/16/21 12:13 Resp 20 05/16/21 12:13 BP 137/77 05/16/21 12:13 Pulse Ox 92 L 05/16/21 12:13 Intake & Output 05/15/21 05/16/21 05/16/21 18:59 06:59 18:59 Intake Total 578 727.167 10 Output Total 350 700 375 Balance 228 27.167 -365 Intake: IV 10 Invasive Line 3 10 Intake, IV Titration 177.167 Amount Heparin Sod,Pork in 0.45% 177.167 NaCl 25,000 unit In 0.45 % NaCl 1 250ml.bag @ 8. 105 UNITS/KG/HR 10 mls/hr IV .Q24H [facility] Rx#: [id number] Oral 578 Blood Product 550 Output: Urine 350 700 375 Other: Voiding Method Indwelling Catheter - Exam General Impression: Calm and comfortable and the patient is currently on 10 L of oxygen by nasal cannula Head exam was generally normal. There was no scleral icterus or corneal arcus. Mucous membranes were moist. HEENT: Normocephalic atraumatic, extra-ocular movements intact, pupils equal and reactive to light bilaterally Cardiovascular: Heart regular rate and rhythm Chest: Lung sounds reveal equal and symmetrical breath sounds bilaterally with some bibasilar crackles Abdomen: abdomen soft, non-tender, non-distended, no organomegaly Musculoskeletal: Pulses present and equal in all extremities, no peripheral edema Motor: no focal deficits noted Neurological: no focal motor or sensory deficits noted Skin: Intact with no visualized rashes - Labs CBC & Chem 7: 05/16/21 03:09 05/16/21 03:09 Labs: Abnormal Lab Results - Last 24 Hours (Table) 05/15/21 05/16/21 05/16/21 Range/Units 09:10 03:09 03:09 RDW 15.8 H (11.5-15.5) % Lymphocytes # 0.6 L (1.0-4.8) k/uL APTT (22.0-30.0) sec BUN 52 H (7-17) mg/dL Creatinine 1.06 H (0.52-1.04) mg/dL Glucose 150 H (74-99) mg/dL AST 62 H (14-36) U/L Lactate Dehydrogenase 854 H (313-618) U/L C-Reactive Protein 2.5 H (<1.0) mg/dL Albumin 3.4 L (3.5-5.0) g/dL Procalcitonin 0.39 H (0.02-0.09) ng/mL 05/16/21 05/16/21 Range/Units 03:09 08:54 RDW (11.5-15.5) % Lymphocytes # (1.0-4.8) k/uL APTT 49.4 H 63.0 H (22.0-30.0) sec BUN (7-17) mg/dL Creatinine (0.52-1.04) mg/dL Glucose (74-99) mg/dL AST (14-36) U/L Lactate Dehydrogenase (313-618) U/L C-Reactive Protein (<1.0) mg/dL Albumin (3.5-5.0) g/dL Procalcitonin (0.02-0.09) ng/mL Assessment and Plan Plan: 1 acute hypoxic respiratory failure secondary COVID 19 related pneumonia. The patient is calm and comfortable and the patient is currently on 15 L and she was weaned down to 10 L about 2 by nasal cannula. She remains on a combination of Baricitinib and Decadron. 2 acute COVID 19 related pneumonia symptoms started on 05/02/2021 3 generalized weakness and constant pressure symptoms secondary to above 4 obesity with a BMI of 46.7 5 mild transaminitis secondary to above 6 abnormal troponin, troponin leak essentially related to oxygen mismatch due to COVID 19 related pneumonia. Patient's free of any chest pain, and EKG showing some nonspecific ST-T abnormalities without any acute ischemic changes. Cardiac rhythm is sinus. The patient was taken off the IV heparin. 7 hypertension Plan Continue weaning down the oxygen currently on 10 L Continue Decadron 6 mg IV every 24 hours Continue Baricitinib protocol Pro-calcitonin level will be sent and the level came back low at 0.39 Saw the patient on Lovenox for a negative subcu every 24 hours Obtain 2-D echocardiogram, showing a preserved LV function Check inflammatory markers including LDH CRP, levels are improving Start the patient vitamin C and vitamin D and zinc supplements We'll continue to follow make further recommendations based on her progress.
[2021-05-16] MEDS: ENOXAPARIN 40 MG/0.4 ML SYRINGE SQ SCH (15:36)
[2021-05-17 08:10] LABS: Basophils % (A) 0 %; Eosinophils % (A) 0 %; HCT 46.1 % (34.0-46.0); HGB 14.8 gm/dL (11.4-16.0); Hypochromasia Slight; Lymphocytes # (A) 1.1 k/uL (1.0-4.8); Lymphocytes % (A) 17 %; MCH 32.4 pg (25.0-35.0); MCHC 32.1 g/dL (31.0-37.0); MCV 101.1 fL (80.0-100.0); Macrocytosis Slight; Mean Platelet Volume 8.4; Monocytes # (A) 0.7 k/uL (0-1.0); Monocytes % (A) 11 %; Neutrophils # (A) 4.3 k/uL (1.3-7.7); Neutrophils % (A) 68 %; Platelet Count 343 k/uL (150-450); Poikilocytosis Slight; RBC 4.56 m/uL (3.80-5.40); RDW 15.7 % (11.5-15.5); WBC 6.4 k/uL (3.8-10.6)
[2021-05-17 08:26] LABS: Albumin 3.5 g/dL (3.5-5.0); Calcium 8.9 mg/dL (8.4-10.2); Potassium 4.6 mmol/L (3.5-5.1); Total Bilirubin 0.6 mg/dL (0.2-1.3); Total Protein 6.9 g/dL (6.3-8.2)
[2021-05-17] MEDS: DEXAMETHASONE SOD PHOSPHATE 10 MG/ML 1 ML VIAL IVP SCH (08:55)
[2021-05-17] MEDS: ENOXAPARIN 40 MG/0.4 ML SYRINGE SQ SCH (08:55)
[2021-05-17] MEDS: ZINC SULFATE 220 MG CAP PO SCH (08:56)
[2021-05-17] MEDS: CHOLECALCIFEROL 25 MCG (1000 IU) TABLET PO SCH (08:56)
[2021-05-17] MEDS: ASCORBIC ACID 500 MG TAB PO SCH (08:56)
--- NOTE | 2021-05-17 12:09 | P.PN ---
Subjective Progress Note Date: 05/17/21 This is a 61-year-old female patient, obese with a BMI of 46.7, who is currently Hospital as for COVID 19 related pneumonia. Note that the patient is vaccinated earlier this year and she received a [employer] single dose vaccine. Around 2 weeks ago, specifically around 13 days ago, the patient started having COVID 19 related symptoms. She started having some increased cough and progressive worsening shortness of breath. Her symptoms started on 05/02/2021. She was getting progressively more worse and the patient was brought in to the burst department by EMS. The patient was found to be lethargic and weak and short of breath. She was quite hypoxic and she was febrile with a temperature 103F. Immediately, the patient was placed on a BiPAP at a pressure of 12/6 cm of water and FiO2 is currently at 70%. Note that the patient was tachycardic and tachypneic at time of admission which has improved since. The patient a white cell count of 5 with a hemoglobin of 14.6, albumin was at 32 with a creatinine of 1.2. She had normal correlation profile, normal d-dimer was 0.87, LFTs showed an AST of 82, ALT of 32, alkaline phosphatase of 71 with a troponin level of 0.456 at time of admission. CRP level was at 4.9, total protein was at 6.9, electrolytes are warm within normal limits. The patient had a UA that was essentially showing +1 protein otherwise negative. COVID 19 testing was positive. Note that the subsequent troponins came back at 0.683 and 0.561 respectively. The patient is currently on Decadron 6 mg IV every 24 hours. The patient is also on IV heparin. She is comfortable on the BiPAP. No altered mentation. On today's evaluation of 05/16/2021, the patient is being seen for a follow-up. Clinically the patient is feeling better compared to yesterday. She is much more alert and awake and communicating on today's evaluation. She remains on oxygen at 15. Liters nasal cannula. She is hemodynamically stable. She is unable to fully expand her lungs because of some pain and cough and. Otherwise, she has no fever. The patient was advised of 5.5 and hemoglobin 14.3. The patient's electrodes are all within normal limits, BUN is a 52 with a creatinine of 1.06, the patient's LDH level is at 854 with a CRP of 2.5 and the numbers are improving compared to yesterday. The pro calcitonin level is at 0.39. I had opportunity to wean this patient's FiO2 down to 10 L from 15 L there was being used yesterday. Meanwhile, the patient is being covered with a combination of Decadron 6 mg IV every 24 hours and the patient is also on Baricitinib per maureen col 2 mg on a daily basis. The patient was also taken off the IV heparin and the patient will be started on Lovenox for DVT prophylaxis. 05/17/2021, the patient is doing well. No new complaints otherwise for now. No chest pain. He remains on Decadron and Baricitinib combination. The patient wa s on 15 L about 2 by nasal cannula. I weaned her down to 10 L and I further drop down to 8 L today knowing that his saturation remained above 90%. She is feeling well. She has no specific complaints pH is afebrile. Blood work from today shows a white cell count 6.4 with a hemoglobin of 14.8, platelet counts are stable, sodium is 140, the BUN is at 36 with a creatinine of 0.9. Electrolytes all within normal limits. There is mild transaminitis. Otherwise no other significant abnormalities of been noted. The patient is currently off IV heparin as mentioned earlier. Most recent of the summer from yesterday was 854. Objective - Vital Signs Vital signs: Vital Signs Temp 98 F 05/17/21 08:55 Pulse 50 L 05/17/21 08:55 Resp 18 05/17/21 08:55 BP 124/74 05/17/21 08:55 Pulse Ox 95 05/17/21 08:55 Intake & Output 05/16/21 05/17/21 05/17/21 18:59 06:59 18:59 Intake Total 550 180 Output Total 375 900 Balance 175 -900 180 Intake: IV 10 Invasive Line 3 10 Oral 540 180 Output: Urine 375 900 Other: Voiding Method Indwelling Catheter Indwelling Catheter Indwelling Catheter - Exam General Impression: Calm and comfortable and the patient is currently on 10 L of oxygen by nasal cannula Head exam was generally normal. There was no scleral icterus or corneal arcus. Mucous membranes were moist. HEENT: Normocephalic atraumatic, extra-ocular movements intact, pupils equal and reactive to light bilaterally Cardiovascular: Heart regular rate and rhythm Chest: Lung sounds reveal equal and symmetrical breath sounds bilaterally with some bibasilar crackles Abdomen: abdomen soft, non-tender, non-distended, no organomegaly Musculoskeletal: Pulses present and equal in all extremities, no peripheral edema Motor: no focal deficits noted Neurological: no focal motor or sensory deficits noted Skin: Intact with no visualized rashes - Labs CBC & Chem 7: 05/17/21 07:29 05/17/21 07:29 Labs: Abnormal Lab Results - Last 24 Hours (Table) 05/17/21 05/17/21 Range/Units 07:29 07:29 Hct 46.1 H (34.0-46.0) % MCV 101.1 H (80.0-100.0) fL RDW 15.7 H (11.5-15.5) % BUN 36 H (7-17) mg/dL Glucose 100 H (74-99) mg/dL AST 76 H (14-36) U/L ALT 42 H (4-34) U/L Assessment and Plan Plan: 1 acute hypoxic respiratory failure secondary COVID 19 related pneumonia. The patient is calm and comfortable and the patient is currently on 15 L and she was weaned down to 10 L about 2 by nasal cannula. She remains on a combination of Baricitinib and Decadron. 2 acute COVID 19 related pneumonia symptoms started on 05/02/2021 3 generalized weakness and constant pressure symptoms secondary to above 4 obesity with a BMI of 46.7 5 mild transaminitis secondary to above 6 abnormal troponin, troponin leak essentially related to oxygen mismatch due to COVID 19 related pneumonia. Patient's free of any chest pain, and EKG showing some nonspecific ST-T abnormalities without any acute ischemic changes. Cardiac rhythm is sinus. The patient was taken off the IV heparin. 7 hypertension Plan Continue weaning down the oxygen currently on 8 L and maintain our ability to wean down FiO2 as long as saturation remains above 90% Continue Decadron 6 mg IV every 24 hours Continue Baricitinib protocol Pro-calcitonin level will be sent and the level came back low at 0.39 Continue Lovenox for a negative subcu every 24 hours Obtain 2-D echocardiogram, showing a preserved LV function Check inflammatory markers including LDH CRP, levels are improving Start the patient vitamin C and vitamin D and zinc supplements We'll continue to follow make further recommendations based on her progress.
[2021-05-17] MEDS: BARICITINIB 2 MG TABLET PO SCH (12:12)
[2021-05-17] MEDS ORDERED: BARICITINIB 2 MG TABLET PO ONE (13:30)
[2021-05-18] MEDS: DEXAMETHASONE SOD PHOSPHATE 10 MG/ML 1 ML VIAL IVP SCH (08:16)
[2021-05-18] MEDS: ENOXAPARIN 40 MG/0.4 ML SYRINGE SQ SCH (08:16)
[2021-05-18] MEDS: ASCORBIC ACID 500 MG TAB PO SCH (08:17)
[2021-05-18] MEDS: CHOLECALCIFEROL 25 MCG (1000 IU) TABLET PO SCH (08:17)
[2021-05-18] MEDS: ZINC SULFATE 220 MG CAP PO SCH (08:17)
[2021-05-18 09:13] LABS: Basophils % (A) 0 %; Eosinophils % (A) 0 %; HCT 45.6 % (34.0-46.0); HGB 14.7 gm/dL (11.4-16.0); Hypochromasia Slight; Lymphocytes # (A) 0.9 k/uL (1.0-4.8); Lymphocytes % (A) 17 %; MCH 32.3 pg (25.0-35.0); MCHC 32.4 g/dL (31.0-37.0); MCV 99.7 fL (80.0-100.0); Macrocytosis Slight; Monocytes # (A) 0.6 k/uL (0-1.0); Monocytes % (A) 10 %; Neutrophils # (A) 3.8 k/uL (1.3-7.7); Neutrophils % (A) 69 %; Platelet Count 370 k/uL (150-450); Poikilocytosis Slight; RBC 4.57 m/uL (3.80-5.40); RDW 15.5 % (11.5-15.5); WBC 5.6 k/uL (3.8-10.6)
--- NOTE | 2021-05-18 09:13 | XR ---
EXAMINATION TYPE: XR chest 1V portable DATE OF EXAM: 05/18/2021 COMPARISON: 05/14/2021 INDICATION: Pneumonia TECHNIQUE: Single frontal view of the chest is obtained. FINDINGS: The heart size is probably prominent. The pulmonary vasculature is upper limits of normal. Patchy infiltrates are present bilaterally greater on the left. Findings have improved over the inter stephenie. IMPRESSION: 1. Improving patchy infiltrates bilaterally can be compatible with atypical pneumonia. 2. Cardiomegaly with mild prominent pulmonary vascular markings. Consider volume overload and congest quique heart failure.
[2021-05-18 09:30] LABS: Albumin 3.4 g/dL (3.5-5.0); C Reactive Protein 0.7 mg/dL (<1.0); Potassium 4.3 mmol/L (3.5-5.1); Total Bilirubin 0.8 mg/dL (0.2-1.3); Total Protein 6.7 g/dL (6.3-8.2)
[2021-05-18] MEDS: BARICITINIB 2 MG TABLET PO SCH (12:09)
--- NOTE | 2021-05-18 13:30 | P.PN ---
Subjective Progress Note Date: 05/18/21 This is a 61-year-old female patient, obese with a BMI of 46.7, who is currently Hospital as for COVID 19 related pneumonia. Note that the patient is vaccinated earlier this year and she received a [employer] single dose vaccine. Around 2 weeks ago, specifically around 13 days ago, the patient started having COVID 19 related symptoms. She started having some increased cough and progressive worsening shortness of breath. Her symptoms started on 05/02/2021. She was getting progressively more worse and the patient was brought in to the burst department by EMS. The patient was found to be lethargic and weak and short of breath. She was quite hypoxic and she was febrile with a temperature 103F. Immediately, the patient was placed on a BiPAP at a pressure of 12/6 cm of water and FiO2 is currently at 70%. Note that the patient was tachycardic and tachypneic at time of admission which has improved since. The patient a white cell count of 5 with a hemoglobin of 14.6, albumin was at 32 with a creatinine of 1.2. She had normal correlation profile, normal d-dimer was 0.87, LFTs showed an AST of 82, ALT of 32, alkaline phosphatase of 71 with a troponin level of 0.456 at time of admission. CRP level was at 4.9, total protein was at 6.9, electrolytes are warm within normal limits. The patient had a UA that was essentially showing +1 protein otherwise negative. COVID 19 testing was positive. Note that the subsequent troponins came back at 0.683 and 0.561 respectively. The patient is currently on Decadron 6 mg IV every 24 hours. The patient is also on IV heparin. She is comfortable on the BiPAP. No altered mentation. On today's evaluation of 05/16/2021, the patient is being seen for a follow-up. Clinically the patient is feeling better compared to yesterday. She is much more alert and awake and communicating on today's evaluation. She remains on oxygen at 15. Liters nasal cannula. She is hemodynamically stable. She is unable to fully expand her lungs because of some pain and cough and. Otherwise, she has no fever. The patient was advised of 5.5 and hemoglobin 14.3. The patient's electrodes are all within normal limits, BUN is a 52 with a creatinine of 1.06, the patient's LDH level is at 854 with a CRP of 2.5 and the numbers are improving compared to yesterday. The pro calcitonin level is at 0.39. I had opportunity to wean this patient's FiO2 down to 10 L from 15 L there was being used yesterday. Meanwhile, the patient is being covered with a combination of Decadron 6 mg IV every 24 hours and the patient is also on Baricitinib per maureen col 2 mg on a daily basis. The patient was also taken off the IV heparin and the patient will be started on Lovenox for DVT prophylaxis. 05/17/2021, the patient is doing well. No new complaints otherwise for now. No chest pain. He remains on Decadron and Baricitinib combination. The patient wa s on 15 L about 2 by nasal cannula. I weaned her down to 10 L and I further drop down to 8 L today knowing that his saturation remained above 90%. She is feeling well. She has no specific complaints pH is afebrile. Blood work from today shows a white cell count 6.4 with a hemoglobin of 14.8, platelet counts are stable, sodium is 140, the BUN is at 36 with a creatinine of 0.9. Electrolytes all within normal limits. There is mild transaminitis. Otherwise no other significant abnormalities of been noted. The patient is currently off IV heparin as mentioned earlier. Most recent of the summer from yesterday was 854. 05/18/2021, I'm seeing the patient for a follow-up. The patient is doing well. No specific complaints for now. She remains on oxygen and she has been weaned yesterday down to 8 L of Oxymizer nasal cannula. Current pulse ox is around 97%. Feels okay. Remains on a combination of Decadron on Baricitinib. No new complaints otherwise for now. Afebrile hemodynamically stable. The white cell count of 5.6 with a 14.7, d-dimer is a 0.5, LDH level is low at 825 and a CRP level is at 0.7. Electrodes are all within normal limits. No other significant events otherwise for now. The patient is on Lovenox for DVT prophylaxis 40 mg subcu on a daily basis. Objective - Vital Signs Vital signs: Vital Signs Temp 98.4 F 05/18/21 12:05 Pulse 57 L 05/18/21 12:05 Resp 20 05/18/21 12:05 BP 127/84 05/18/21 12:05 Pulse Ox 97 05/18/21 12:05 Intake & Output 05/17/21 05/18/21 05/18/21 18:59 06:59 18:59 Intake Total 540 480 Output Total 200 500 Balance 340 -500 480 Intake: Oral 540 480 Output: Urine 200 500 Other: Voiding Method Bedside Commode Bedside Commode Bedside Commode # Voids 1 # Bowel Movements 0 1 1 - Exam General Impression: Calm and comfortable and the patient is currently on 10 L of oxygen by nasal cannula Head exam was generally normal. There was no scleral icterus or corneal arcus. Mucous membranes were moist. HEENT: Normocephalic atraumatic, extra-ocular movements intact, pupils equal and reactive to light bilaterally Cardiovascular: Heart regular rate and rhythm Chest: Lung sounds reveal equal and symmetrical breath sounds bilaterally with some bibasilar crackles Abdomen: abdomen soft, non-tender, non-distended, no organomegaly Musculoskeletal: Pulses present and equal in all extremities, no peripheral edema Motor: no focal deficits noted Neurological: no focal motor or sensory deficits noted Skin: Intact with no visualized rashes - Labs CBC & Chem 7: 05/18/21 08:21 05/18/21 08:21 Labs: Abnormal Lab Results - Last 24 Hours (Table) 05/18/21 05/18/21 Range/Units 08:21 08:21 Lymphocytes # 0.9 L (1.0-4.8) k/uL BUN 34 H (7-17) mg/dL Glucose 108 H (74-99) mg/dL AST 139 H (14-36) U/L ALT 102 H (4-34) U/L Lactate Dehydrogenase 825 H (313-618) U/L Albumin 3.4 L (3.5-5.0) g/dL Assessment and Plan Plan: 1 acute hypoxic respiratory failure secondary COVID 19 related pneumonia. The patient is calm and comfortable and the patient is currently on 15 L and she was weaned down to 10 L about 2 by nasal cannula. She remains on a combination of Baricitinib and Decadron. Clinically stable 2 acute COVID 19 related pneumonia symptoms started on 05/02/2021 3 generalized weakness and constant pressure symptoms secondary to above 4 obesity with a BMI of 46.7 5 mild transaminitis secondary to above 6 abnormal troponin, troponin leak essentially related to oxygen mismatch due to COVID 19 related pneumonia. Patient's free of any chest pain, and EKG showing some nonspecific ST-T abnormalities without any acute ischemic changes. Cardiac rhythm is sinus. The patient was taken off the IV heparin. 7 hypertension Plan Continue weaning down the oxygen currently on 8 L and maintain our ability to wean down FiO2 as long as saturation remains above 90%, currently her pulse ox 97% and there is some room for weaning the FiO2 down further. Continue Decadron 6 mg IV every 24 hours Continue Baricitinib protocol Pro-calcitonin level will be sent and the level came back low at 0.39 Continue Lovenox for a negative subcu every 24 hours Obtain 2-D echocardiogram, showing a preserved LV function Check inflammatory markers including LDH CRP, levels are improving Start the patient vitamin C and vitamin D and zinc supplements We'll continue to follow make further recommendations based on her progress.
--- NOTE | 2021-05-19 01:47 | P.PN ---
Subjective Progress Note Date: 05/16/21 Patient is a 61-year-old female with a known history of hypertension, morbid obesity with BMI 46.7 presented to ER with complaints of cough congestion worsening shortness of breath. Patient symptoms started about 2 weeks ago. She did take [employer] Ra[employer] vaccine. Patient was brought to the hospital by EMS. Patient lives with a roommate. Upon arrival patient was found to be hypoxic with pulse ox in the 80s and was in respiratory distress. T-max was 103 F. Patient was placed on 100% nonrebreather and BiPAP. Chest x-ray showed moderate cardiomegaly, bilateral interstitial opacities suggestive of CHF. Patchy-like bibasilar opacities concerning for superimposed infection. EKG showed sinus tachycardia with premature atrial complexes Laboratory data showed WBC 5.0 hemoglobin 14.6 and platelets 191 lymphocytes 0.7 D-dimer is 0.87 BUN 3020 creatinine 1.21 Troponin 0 0.456, 0.683 and 0.561 Urinalysis showed cloudy with 1+ protein and negative leukocyte esterase COVID-19 PCR detected. 05/16/2021 Patient is currently sitting in a chair. Awake alert and oriented x3. Still requiring oxygen at 15 L via nasal cannula. Denied any complaints of chest pain or worsening shortness of breath. Patient is being followed dexamethasone, baricitinib and multivitamin supplementation. Also on Lovenox subcu. Laboratory data showed WBC 5.5 hemoglobin 14.3 and platelets 256 Sodium 138 potassium 4.3 chloride 103 BUN 52 and creatinine 1.06 LDH 854 and CRP 2.5 Albumin 3.4 No nausea vomiting abdominal pain or diarrhea. Patient has been afebrile. Cough without any sputum production. Current medications reviewed. Objective - Vital Signs Vital signs: Vital Signs Temp 98.0 F 05/16/21 20:42 Pulse 65 05/16/21 20:42 Resp 20 05/16/21 20:42 BP 117/62 05/16/21 20:42 Pulse Ox 91 L 05/16/21 20:42 Intake & Output 05/16/21 05/16/21 05/17/21 06:59 18:59 06:59 Intake Total 727.167 550 Output Total 700 375 Balance 27.167 175 Intake: IV 10 Invasive Line 3 10 Intake, IV Titration 177.167 Amount Heparin Sod,Pork in 0.45% 177.167 NaCl 25,000 unit In 0.45 % NaCl 1 250ml.bag @ 8. 105 UNITS/KG/HR 10 mls/hr IV .Q24H [facility] Rx#: [id number] Oral 540 Blood Product 550 Output: Urine 700 375 Other: Voiding Method Indwelling Catheter Indwelling Catheter - Exam PHYSICAL EXAMINATION: Patient is lying in the bed comfortably, no acute distress, awake alert and oriented.. HEENT: Normocephalic. Neck is supple. Pupils reactive. Nostrils clear. Oral cavity is moist. Neck reveals no JVD, carotid bruits, or thyromegaly. CHEST EXAMINATION: Trachea is central. Symmetrical expansion. Scattered coarse sounds. Nonlabored breathing.. CARDIAC: Normal S1, S2 with no gallops. No murmurs ABDOMEN: Soft. Bowel sounds normal. No organomegaly. No abdominal bruits. Extremities: reveal no edema. No clubbing or cyanosis Neurologically awake, alert, oriented x3 with well-coordinated movements. No focal deficits noted Skin: No rash or skin lesions. Psychiatric: Cooperative. Nonsuicidal Musculoskeletal: No joint swelling or deformity. Normal range of motion. - Labs CBC & Chem 7: 05/18/21 08:21 05/18/21 08:21 Labs: Abnormal Lab Results - Last 24 Hours (Table) 05/16/21 05/16/21 05/16/21 Range/Units 03:09 03:09 03:09 RDW 15.8 H (11.5-15.5) % Lymphocytes # 0.6 L (1.0-4.8) k/uL APTT 49.4 H (22.0-30.0) sec BUN 52 H (7-17) mg/dL Creatinine 1.06 H (0.52-1.04) mg/dL Glucose 150 H (74-99) mg/dL AST 62 H (14-36) U/L Lactate Dehydrogenase 854 H (313-618) U/L C-Reactive Protein 2.5 H (<1.0) mg/dL Albumin 3.4 L (3.5-5.0) g/dL 05/16/21 Range/Units 08:54 RDW (11.5-15.5) % Lymphocytes # (1.0-4.8) k/uL APTT 63.0 H (22.0-30.0) sec BUN (7-17) mg/dL Creatinine (0.52-1.04) mg/dL Glucose (74-99) mg/dL AST (14-36) U/L Lactate Dehydrogenase (313-618) U/L C-Reactive Protein (<1.0) mg/dL Albumin (3.5-5.0) g/dL Assessment and Plan Assessment: Acute hypoxic respiratory failure requiring BiPAP secondary to COVID-19 pneumonia. Symptoms started 2 weeks ago. Patient is vaccinated with [employer] Ra[employer] single dose. Generalized weakness lethargic secondary 1 Elevated troponin level possible demand mismatch due to infection and hypoxia. Morbid obesity BMI 46.7 Hypertension DVT prophylaxis on heparin Drip Plan: Patient is currently on 15 L high flow oxygen. Initially was on BiPAP. Continue to titrate down FiO2. Continue with dexamethasone and Lovenox subcu. Continue with vitamin supplementation. Patient was started on baricitinib as per pulmonary recommendations. Patient was started on Cardizem drip and cardiology will be consulted. Prognosis is guarded at this time. Time with Patient: Greater than 30
--- NOTE | 2021-05-19 01:49 | P.PN ---
Subjective Progress Note Date: 05/17/21 Patient is a 61-year-old female with a known history of hypertension, morbid obesity with BMI 46.7 presented to ER with complaints of cough congestion worsening shortness of breath. Patient symptoms started about 2 weeks ago. She did take Ra[employer]l [employer] Ra[employer]l vaccine. Patient was brought to the hospital by EMS. Patient lives with a roommate. Upon arrival patient was found to be hypoxic with pulse ox in the 80s and was in respiratory distress. T-max was 103 F. Patient was placed on 100% nonrebreather and BiPAP. Chest x-ray showed moderate cardiomegaly, bilateral interstitial opacities suggestive of CHF. Patchy-like bibasilar opacities concerning for superimposed infection. EKG showed sinus tachycardia with premature atrial complexes Laboratory data showed WBC 5.0 hemoglobin 14.6 and platelets 191 lymphocytes 0.7 D-dimer is 0.87 BUN 3020 creatinine 1.21 Troponin 0 0.456, 0.683 and 0.561 Urinalysis showed cloudy with 1+ protein and negative leukocyte esterase COVID-19 PCR detected. 05/16/2021 Patient is currently sitting in a chair. Awake alert and oriented x3. Still requiring oxygen at 15 L via nasal cannula. Denied any complaints of chest pain or worsening shortness of breath. Patient is being followed dexamethasone, baricitinib and multivitamin supplementation. Also on Lovenox subcu. Laboratory data showed WBC 5.5 hemoglobin 14.3 and platelets 256 Sodium 138 potassium 4.3 chloride 103 BUN 52 and creatinine 1.06 LDH 854 and CRP 2.5 Albumin 3.4 No nausea vomiting abdominal pain or diarrhea. Patient has been afebrile. Cough without any sputum production. 05/17/2021 Patient is currently sitting in the chair. Awake alert 1x3. No complaints of chest pain or worsening shortness of breath. Question reaction requiring 15 L oxygen via nasal cannula. Currently weaned down to 10 L. Patient is being currently on dexamethasone, baricitinib and multivitamins and Lovenox subcu. Laboratory showed WBC 6.4 hemoglobin 14.8 and platelets 343 BUN 36 and creatinine 0.94. Pulmonary is on board. Current medications reviewed. Objective - Vital Signs Vital signs: Vital Signs Temp 98.1 F 05/17/21 15:40 Pulse 54 L 05/17/21 15:40 Resp 18 05/17/21 15:40 BP 135/58 05/17/21 15:40 Pulse Ox 94 L 05/17/21 12:10 Intake & Output 05/17/21 05/17/21 05/18/21 06:59 18:59 06:59 Intake Total 540 Output Total 900 200 Balance -900 340 Intake: Oral 540 Output: Urine 900 200 Other: Voiding Method Indwelling Catheter Bedside Commode # Bowel Movements 0 - Exam PHYSICAL EXAMINATION: Patient is lying in the bed comfortably, no acute distress, awake alert and oriented.. HEENT: Normocephalic. Neck is supple. Pupils reactive. Nostrils clear. Oral cavity is moist. Neck reveals no JVD, carotid bruits, or thyromegaly. CHEST EXAMINATION: Trachea is central. Symmetrical expansion. Scattered coarse sounds. Nonlabored breathing.. CARDIAC: Normal S1, S2 with no gallops. No murmurs ABDOMEN: Soft. Bowel sounds normal. No organomegaly. No abdominal bruits. Extremities: reveal no edema. No clubbing or cyanosis Neurologically awake, alert, oriented x3 with well-coordinated movements. No focal deficits noted Skin: No rash or skin lesions. Psychiatric: Cooperative. Nonsuicidal Musculoskeletal: No joint swelling or deformity. Normal range of motion. - Labs CBC & Chem 7: 05/18/21 08:21 05/18/21 08:21 Labs: Abnormal Lab Results - Last 24 Hours (Table) 05/17/21 05/17/21 Range/Units 07:29 07:29 Hct 46.1 H (34.0-46.0) % MCV 101.1 H (80.0-100.0) fL RDW 15.7 H (11.5-15.5) % BUN 36 H (7-17) mg/dL Glucose 100 H (74-99) mg/dL AST 76 H (14-36) U/L ALT 42 H (4-34) U/L Assessment and Plan Assessment: Acute hypoxic respiratory failure requiring BiPAP secondary to COVID-19 pneumonia. Symptoms started 2 weeks ago. Patient is vaccinated with Ra[employer]l [employer] Ra[employer]l single dose. Generalized weakness lethargic secondary 1 Elevated troponin level possible demand mismatch due to infection and hypoxia. Morbid obesity BMI 46.7 Hypertension DVT prophylaxis on heparin Drip Plan: Patient is currently on 15---10L high flow oxygen. Initially was on BiPAP. Continue to titrate down FiO2. Continue with dexamethasone and Lovenox subcu. Continue with vitamin supplementation. Patient was started on baricitinib as per pulmonary recommendations. Patient was started on Cardizem drip and cardiology will be consulted. Prognosis is guarded at this time. Time with Patient: Greater than 30
--- NOTE | 2021-05-19 01:50 | P.PN ---
Subjective Progress Note Date: 05/18/21 Patient is a 61-year-old female with a known history of hypertension, morbid obesity with BMI 46.7 presented to ER with complaints of cough congestion worsening shortness of breath. Patient symptoms started about 2 weeks ago. She did take [employer] vaccine. Patient was brought to the hospital by EMS. Patient lives with a roommate. Upon arrival patient was found to be hypoxic with pulse ox in the 80s and was in respiratory distress. T-max was 103 F. Patient was placed on 100% nonrebreather and BiPAP. Chest x-ray showed moderate cardiomegaly, bilateral interstitial opacities suggestive of CHF. Patchy-like bibasilar opacities concerning for superimposed infection. EKG showed sinus tachycardia with premature atrial complexes Laboratory data showed WBC 5.0 hemoglobin 14.6 and platelets 191 lymphocytes 0.7 D-dimer is 0.87 BUN 3020 creatinine 1.21 Troponin 0 0.456, 0.683 and 0.561 Urinalysis showed cloudy with 1+ protein and negative leukocyte esterase COVID-19 PCR detected. 05/16/2021 Patient is currently sitting in a chair. Awake alert and oriented x3. Still requiring oxygen at 15 L via nasal cannula. Denied any complaints of chest pain or worsening shortness of breath. Patient is being followed dexamethasone, baricitinib and multivitamin supplementation. Also on Lovenox subcu. Laboratory data showed WBC 5.5 hemoglobin 14.3 and platelets 256 Sodium 138 potassium 4.3 chloride 103 BUN 52 and creatinine 1.06 LDH 854 and CRP 2.5 Albumin 3.4 No nausea vomiting abdominal pain or diarrhea. Patient has been afebrile. Cough without any sputum production. 05/17/2021 Patient is currently sitting in the chair. Awake alert 1x3. No complaints of chest pain or worsening shortness of breath. Question reaction requiring 15 L oxygen via nasal cannula. Currently weaned down to 10 L. Patient is being currently on dexamethasone, baricitinib and multivitamins and Lovenox subcu. Laboratory showed WBC 6.4 hemoglobin 14.8 and platelets 343 BUN 36 and creatinine 0.94. Pulmonary is on board. 05/18/21 Patient is currently resting in the bed. Awake alert oriented x3. Requiring oxygen at 8 L via nasal cannula. Pulse ox at 97%. Patient is being current dexamethasone and baricitinib Lovenox subcu and multivitamins augmentation. Laboratory data showed WBC 5.6 hemoglobin 14.7 and platelets 370 lymphocytes 0.9 BUN 34 and creatinine 0.82 No complaints of chest pain. No nausea vomiting abdominal pain or diarrhea. No dysuria or hematuria. Patient has been afebrile. Current medications reviewed. Objective - Vital Signs Vital signs: Vital Signs Temp 98.1 F 05/18/21 16:00 Pulse 55 L 05/18/21 16:00 Resp 20 05/18/21 16:00 BP 137/84 05/18/21 16:00 Pulse Ox 97 05/18/21 16:00 Intake & Output 05/17/21 05/18/21 05/18/21 18:59 06:59 18:59 Intake Total 540 598 Output Total 200 500 Balance 340 -500 598 Intake: Oral 540 598 Output: Urine 200 500 Other: Voiding Method Bedside Commode Bedside Commode Bedside Commode # Voids 1 # Bowel Movements 0 1 1 - Exam PHYSICAL EXAMINATION: Patient is lying in the bed comfortably, no acute distress, awake alert and oriented.. HEENT: Normocephalic. Neck is supple. Pupils reactive. Nostrils clear. Oral cavity is moist. Neck reveals no JVD, carotid bruits, or thyromegaly. CHEST EXAMINATION: Trachea is central. Symmetrical expansion. Scattered coarse sounds. Nonlabored breathing.. CARDIAC: Normal S1, S2 with no gallops. No murmurs ABDOMEN: Soft. Bowel sounds normal. No organomegaly. No abdominal bruits. Extremities: reveal no edema. No clubbing or cyanosis Neurologically awake, alert, oriented x3 with well-coordinated movements. No focal deficits noted Skin: No rash or skin lesions. Psychiatric: Cooperative. Nonsuicidal Musculoskeletal: No joint swelling or deformity. Normal range of motion. - Labs CBC & Chem 7: 05/18/21 08:21 05/18/21 08:21 Labs: Abnormal Lab Results - Last 24 Hours (Table) 05/18/21 05/18/21 Range/Units 08:21 08:21 Lymphocytes # 0.9 L (1.0-4.8) k/uL BUN 34 H (7-17) mg/dL Glucose 108 H (74-99) mg/dL AST 139 H (14-36) U/L ALT 102 H (4-34) U/L Lactate Dehydrogenase 825 H (313-618) U/L Albumin 3.4 L (3.5-5.0) g/dL Assessment and Plan Assessment: Acute hypoxic respiratory failure requiring BiPAP secondary to COVID-19 pneumonia. Symptoms started 2 weeks ago. Patient is vaccinated with [employer] single dose. Generalized weakness lethargic secondary 1 Elevated troponin level possible demand mismatch due to infection and hypoxia. Morbid obesity BMI 46.7 Hypertension DVT prophylaxis on heparin Drip Plan: Patient is currently on 15---10L--8L high flow oxygen. Initially was on BiPAP. Continue to titrate down FiO2. Continue with dexamethasone and Lovenox subcu. Continue with vitamin supplementation. Patient was started on baricitinib as per pulmonary recommendations. Patient was started on Cardizem drip and cardiology will be consulted. Prognosis is guarded at this time.
[2021-05-19 06:08] LABS: Glucose,Whole Blood 88 mg/dL (75-99)
[2021-05-19] MEDS: CHOLECALCIFEROL 25 MCG (1000 IU) TABLET PO SCH (09:02)
[2021-05-19] MEDS: ZINC SULFATE 220 MG CAP PO SCH (09:02)
[2021-05-19] MEDS: ASCORBIC ACID 500 MG TAB PO SCH (09:02)
[2021-05-19] MEDS: DEXAMETHASONE SOD PHOSPHATE 10 MG/ML 1 ML VIAL IVP SCH (09:03)
[2021-05-19] MEDS: ENOXAPARIN 40 MG/0.4 ML SYRINGE SQ SCH (09:03)
[2021-05-19 10:22] LABS: ALT 141 U/L (4-34); AST 135 U/L (14-36); African American GFR (CKD) 87 (>60 ml/min/1.73 sqM); Albumin 3.6 g/dL (3.5-5.0); Alkaline Phosphatase 52 U/L (38-126); Anion Gap 8 mmol/L; Blood Urea Nitrogen 32 mg/dL (7-17); C Reactive Protein <0.5 mg/dL (<1.0); Carbon Dioxide 30 mmol/L (22-30); Chloride 101 mmol/L (98-107); Glucose 127 mg/dL (74-99); LDH 824 U/L (313-618); Non-African American GFR(CKD) 76 (>60 ml/min/1.73 sqM); Potassium 4.3 mmol/L (3.5-5.1); Sodium 139 mmol/L (137-145); Total Bilirubin 0.9 mg/dL (0.2-1.3); Total Protein 6.8 g/dL (6.3-8.2)
[2021-05-19 10:28] LABS: Basophils % (A) 0 %; Eosinophils % (A) 1 %; HCT 48.3 % (34.0-46.0); HGB 15.3 gm/dL (11.4-16.0); Hypochromasia Slight; Lymphocytes # (A) 1.2 k/uL (1.0-4.8); Lymphocytes % (A) 20 %; MCH 32.8 pg (25.0-35.0); MCHC 31.8 g/dL (31.0-37.0); MCV 103.3 fL (80.0-100.0); Macrocytosis Slight; Mean Platelet Volume 7.9; Monocytes # (A) 0.6 k/uL (0-1.0); Monocytes % (A) 11 %; Neutrophils # (A) 3.9 k/uL (1.3-7.7); Neutrophils % (A) 66 %; Platelet Count 403 k/uL (150-450); RBC 4.67 m/uL (3.80-5.40); RDW 15.5 % (11.5-15.5); WBC 5.8 k/uL (3.8-10.6)
[2021-05-19] MEDS: BARICITINIB 2 MG TABLET PO SCH (11:31)
--- NOTE | 2021-05-19 18:14 | P.PN ---
Subjective Progress Note Date: 05/19/21 Principal diagnosis: Respiratory failure. 05/18/2021, I'm seeing the patient for a follow-up. The patient is doing well. No specific complaints for now. She remains on oxygen and she has been weaned yesterday down to 8 L of Oxymizer nasal cannula. Current pulse ox is around 97%. Feels okay. Remains on a combination of Decadron on Baricitinib. No new complaints otherwise for now. Afebrile hemodynamically stable. The white cell count of 5.6 with a 14.7, d-dimer is a 0.5, LDH level is low at 825 and a CRP level is at 0.7. Electrodes are all within normal limits. No other significant events otherwise for now. The patient is on Lovenox for DVT prophylaxis 40 mg subcu on a daily basis. Progress note dated 05/19/2021. The patient is currently on 8 L high flow nasal O2. Saturations are 95%. Chest x-ray shows improving infiltrates. The patient did test positive for coronavirus. She remains on Decadron, and ADELSO. The patient is also on Lovenox, zinc, vitamin C, and vitamin D3. Labs include a white count 5.8, he will been 15.3, hematocrit 48.3, and a normal platelet count. Sodium, potassium, chloride, CO2, anion gap, are all normal. BUN is 32 with a creatinine of 0.83. AST 135 with an ALT of 141. Objective - Vital Signs Vital signs: Vital Signs Temp 98.2 F 05/19/21 16:00 Pulse 54 L 05/19/21 16:00 Resp 18 05/19/21 16:00 BP 151/62 05/19/21 16:00 Pulse Ox 97 05/19/21 16:00 Intake & Output 05/18/21 05/19/21 05/19/21 18:59 06:59 18:59 Intake Total 598 880 360 Output Total 300 Balance 598 580 360 Intake: Oral 598 880 360 Output: Urine 300 Other: Voiding Method Bedside Commode Bedside Commode Bedside Commode # Voids 1 1 # Bowel Movements 1 - Exam No acute distress, oriented 3. No conversational dyspnea or use of accessory muscles. HEENT examination is grossly unremarkable. Neck supple. Full range of motion. No adenopathy thyromegaly or neck vein distention. Cardiovascular examination reveals regular rhythm rate. S1-S2 normal. No S3 or S4. No discernible murmur noted. Heart rate 54 bpm. Lungs reveal scattered bilateral rhonchi. No wheezes or crackles. Breath sounds equal bilaterally. Saturations are 97% on 8 L. Abdomen soft bowel sounds are heard. No masses or tenderness. Extremities are intact. No cyanosis clubbing or edema. Skin is without rash or lesion. Neurologic examination is brief but nonfocal. - Labs CBC & Chem 7: 05/19/21 09:14 05/19/21 09:14 Labs: Abnormal Lab Results - Last 24 Hours (Table) 05/19/21 05/19/21 Range/Units 09:14 09:14 Hct 48.3 H (34.0-46.0) % MCV 103.3 H (80.0-100.0) fL BUN 32 H (7-17) mg/dL Glucose 127 H (74-99) mg/dL AST 135 H (14-36) U/L ALT 141 H (4-34) U/L Lactate Dehydrogenase 824 H (313-618) U/L Assessment and Plan Assessment: Acute hypoxemic respiratory failure secondary to coronavirus associated pneumonia. Morbid obesity. Mild transaminitis secondary to coronavirus infection. Mild elevation of troponin, likely related to supply/demand mismatch. History of hypertension. Plan: Plan dated 05/19/2021. The patient remains on 8 L high flow nasal O2. The patient's also getting Decadron, Lovenox, vitamin C, vitamin D3, zinc, and ADELSO. The patient remains relatively stable. We will continue to follow make recommendations where appropriate. We will continue to wean the FiO2. Prognosis is guarded. We will continue to follow this patient. Time with Patient: Less than 30
[2021-05-20 08:30] LABS: Basophils % (A) 0 %; Eosinophils # (A) 0.1 k/uL (0-0.7); Eosinophils % (A) 1 %; HCT 45.6 % (34.0-46.0); Lymphocytes # (A) 1.1 k/uL (1.0-4.8); Lymphocytes % (A) 14 %; MCH 32.7 pg (25.0-35.0); MCHC 32.9 g/dL (31.0-37.0); MCV 99.5 fL (80.0-100.0); Macrocytosis Slight; Mean Platelet Volume 7.7; Monocytes # (A) 0.8 k/uL (0-1.0); Monocytes % (A) 11 %; Neutrophils # (A) 5.2 k/uL (1.3-7.7); Neutrophils % (A) 71 %; Platelet Count 377 k/uL (150-450); Poikilocytosis Slight; RBC 4.58 m/uL (3.80-5.40); RDW 15.5 % (11.5-15.5); WBC 7.3 k/uL (3.8-10.6)
[2021-05-20 08:41] LABS: ALT 131 U/L (4-34); AST 80 U/L (14-36); African American GFR (CKD) >90 (>60 ml/min/1.73 sqM); Albumin 3.5 g/dL (3.5-5.0); Alkaline Phosphatase 58 U/L (38-126); Anion Gap 8 mmol/L; Blood Urea Nitrogen 26 mg/dL (7-17); Calcium 9.2 mg/dL (8.4-10.2); Carbon Dioxide 28 mmol/L (22-30); Chloride 102 mmol/L (98-107); Glucose 78 mg/dL (74-99); Non-African American GFR(CKD) 81 (>60 ml/min/1.73 sqM); Potassium 4.6 mmol/L (3.5-5.1); Sodium 138 mmol/L (137-145); Total Bilirubin 0.8 mg/dL (0.2-1.3); Total Protein 6.7 g/dL (6.3-8.2)
[2021-05-20] MEDS: ZINC SULFATE 220 MG CAP PO SCH (08:54)
[2021-05-20] MEDS: DEXAMETHASONE SOD PHOSPHATE 10 MG/ML 1 ML VIAL IVP SCH (08:54)
[2021-05-20] MEDS: ENOXAPARIN 40 MG/0.4 ML SYRINGE SQ SCH (08:54)
[2021-05-20] MEDS: CHOLECALCIFEROL 25 MCG (1000 IU) TABLET PO SCH (08:54)
[2021-05-20] MEDS: ASCORBIC ACID 500 MG TAB PO SCH (08:55)
--- NOTE | 2021-05-20 10:55 | P.PN ---
Subjective Progress Note Date: 05/19/21 Patient is a 61-year-old female with a known history of hypertension, morbid obesity with BMI 46.7 presented to ER with complaints of cough congestion worsening shortness of breath. Patient symptoms started about 2 weeks ago. She did take [employer] Ra[employer] vaccine. Patient was brought to the hospital by EMS. Patient lives with a roommate. Upon arrival patient was found to be hypoxic with pulse ox in the 80s and was in respiratory distress. T-max was 103 F. Patient was placed on 100% nonrebreather and BiPAP. Chest x-ray showed moderate cardiomegaly, bilateral interstitial opacities suggestive of CHF. Patchy-like bibasilar opacities concerning for superimposed infection. EKG showed sinus tachycardia with premature atrial complexes Laboratory data showed WBC 5.0 hemoglobin 14.6 and platelets 191 lymphocytes 0.7 D-dimer is 0.87 BUN 3020 creatinine 1.21 Troponin 0 0.456, 0.683 and 0.561 Urinalysis showed cloudy with 1+ protein and negative leukocyte esterase COVID-19 PCR detected. 05/16/2021 Patient is currently sitting in a chair. Awake alert and oriented x3. Still requiring oxygen at 15 L via nasal cannula. Denied any complaints of chest pain or worsening shortness of breath. Patient is being followed dexamethasone, baricitinib and multivitamin supplementation. Also on Lovenox subcu. Laboratory data showed WBC 5.5 hemoglobin 14.3 and platelets 256 Sodium 138 potassium 4.3 chloride 103 BUN 52 and creatinine 1.06 LDH 854 and CRP 2.5 Albumin 3.4 No nausea vomiting abdominal pain or diarrhea. Patient has been afebrile. Cough without any sputum production. 05/17/2021 Patient is currently sitting in the chair. Awake alert 1x3. No complaints of chest pain or worsening shortness of breath. Question reaction requiring 15 L oxygen via nasal cannula. Currently weaned down to 10 L. Patient is being currently on dexamethasone, baricitinib and multivitamins and Lovenox subcu. Laboratory showed WBC 6.4 hemoglobin 14.8 and platelets 343 BUN 36 and creatinine 0.94. Pulmonary is on board. 05/18/21 Patient is currently resting in the bed. Awake alert oriented x3. Requiring oxygen at 8 L via nasal cannula. Pulse ox at 97%. Patient is being current dexamethasone and baricitinib Lovenox subcu and multivitamins augmentation. Laboratory data showed WBC 5.6 hemoglobin 14.7 and platelets 370 lymphocytes 0.9 BUN 34 and creatinine 0.82 No complaints of chest pain. No nausea vomiting abdominal pain or diarrhea. No dysuria or hematuria. Patient has been afebrile. 05/19/2021 Patient is currently resting in bed. Awake alert oriented x3. Requiring 8 L oxygen via nasal cannula. Patient is being continued on dexamethasone Lovenox and baricitinib and multivitamin supplementation. Laboratory data showed WBC 5.8 hemoglobin 15.3 and platelets 403 BUN 32 and creatinine 0.83 and blood sugar is 127 AST 135 ALT 141. Patient has been afebrile. Denied any nausea vomiting abdominal pain or diarrhea. Denied any dysuria or hematuria. No cough or sputum production. Pulmonary is on board. Current medications reviewed. Objective - Vital Signs Vital signs: Vital Signs Temp 97.6 F 05/19/21 20:00 Pulse 56 L 05/19/21 20:00 Resp 20 05/19/21 20:00 BP 168/86 05/19/21 20:00 Pulse Ox 98 05/19/21 20:00 Intake & Output 05/19/21 05/19/21 05/20/21 06:59 18:59 06:59 Intake Total 880 540 Output Total 300 Balance 580 540 Intake: Oral 880 540 Output: Urine 300 Other: Voiding Method Bedside Commode Bedside Commode # Voids 1 - Exam PHYSICAL EXAMINATION: Patient is lying in the bed comfortably, no acute distress, awake alert and oriented.. HEENT: Normocephalic. Neck is supple. Pupils reactive. Nostrils clear. Oral cavity is moist. Neck reveals no JVD, carotid bruits, or thyromegaly. CHEST EXAMINATION: Trachea is central. Symmetrical expansion. Scattered coarse sounds. Nonlabored breathing.. CARDIAC: Normal S1, S2 with no gallops. No murmurs ABDOMEN: Soft. Bowel sounds normal. No organomegaly. No abdominal bruits. Extremities: reveal no edema. No clubbing or cyanosis Neurologically awake, alert, oriented x3 with well-coordinated movements. No focal deficits noted Skin: No rash or skin lesions. Psychiatric: Cooperative. Nonsuicidal Musculoskeletal: No joint swelling or deformity. Normal range of motion. - Labs CBC & Chem 7: 05/20/21 07:54 05/20/21 07:54 Labs: Abnormal Lab Results - Last 24 Hours (Table) 05/19/21 05/19/21 Range/Units 09:14 09:14 Hct 48.3 H (34.0-46.0) % MCV 103.3 H (80.0-100.0) fL BUN 32 H (7-17) mg/dL Glucose 127 H (74-99) mg/dL AST 135 H (14-36) U/L ALT 141 H (4-34) U/L Lactate Dehydrogenase 824 H (313-618) U/L Assessment and Plan Assessment: Acute hypoxic respiratory failure requiring BiPAP secondary to COVID-19 pneumonia. Symptoms started 2 weeks ago. Patient is vaccinated with Ra[employer]l [employer] Ra[employer]l single dose. Generalized weakness lethargic secondary 1 Elevated troponin level possible demand mismatch due to infection and hypoxia. Morbid obesity BMI 46.7 Hypertension DVT prophylaxis on heparin Drip Plan: Patient is currently on 15---10L--8L high flow oxygen. Initially was on BiPAP. Continue to titrate down FiO2. Continue with dexamethasone and Lovenox subcu. Continue with vitamin supplementation. Patient was started on baricitinib as per pulmonary recommendations. Patient was started on Cardizem drip and cardiology will be consulted. Prognosis is guarded at this time.
[2021-05-20] MEDS: BARICITINIB 2 MG TABLET PO SCH (12:01)
--- NOTE | 2021-05-20 17:14 | P.PN ---
Subjective Progress Note Date: 05/20/21 Principal diagnosis: Respiratory failure. 05/18/2021, I'm seeing the patient for a follow-up. The patient is doing well. No specific complaints for now. She remains on oxygen and she has been weaned yesterday down to 8 L of Oxymizer nasal cannula. Current pulse ox is around 97%. Feels okay. Remains on a combination of Decadron on Baricitinib. No new complaints otherwise for now. Afebrile hemodynamically stable. The white cell count of 5.6 with a 14.7, d-dimer is a 0.5, LDH level is low at 825 and a CRP level is at 0.7. Electrodes are all within normal limits. No other significant events otherwise for now. The patient is on Lovenox for DVT prophylaxis 40 mg subcu on a daily basis. Progress note dated 05/19/2021. The patient is currently on 8 L high flow nasal O2. Saturations are 95%. Chest x-ray shows improving infiltrates. The patient did test positive for coronavirus. She remains on Decadron, and ADELSO. The patient is also on Lovenox, zinc, vitamin C, and vitamin D3. Labs include a white count 5.8, he will been 15.3, hematocrit 48.3, and a normal platelet count. Sodium, potassium, chloride, CO2, anion gap, are all normal. BUN is 32 with a creatinine of 0.83. AST 135 with an ALT of 141. Progress note dated 05/20/2021. 61-year-old female seen in room 382. Currently, she is on 6 L nasal cannula. Saturations are 95%. The patient is not receiving any IV fluids. The patient remains on vitamin C, vitamin D3, zinc, Lovenox, Decadron, and ADELSO. CBC is normal. Sodium 138, potassium 4.6, chlorides 102, CO2 28, BUN 26, creatinine 0.79, and anion gap is 8. Microbiology is currently negative. No recent chest x-ray to report. The patient is clinically improved. Objective - Vital Signs Vital signs: Vital Signs Temp 97.6 F 05/20/21 15:54 Pulse 53 L 05/20/21 12:16 Resp 20 05/20/21 15:54 BP 148/97 05/20/21 15:54 Pulse Ox 95 05/20/21 15:54 Intake & Output 05/19/21 05/20/21 05/20/21 18:59 06:59 18:59 Intake Total 540 600 Balance 540 600 Intake: Oral 540 600 Other: Voiding Method Bedside Commode Bedside Commode # Voids 1 1 # Bowel Movements 0 - Exam No acute distress, oriented 3. No conversational dyspnea or use of accessory muscles. Saturations are 95% on 6 L nasal cannula. HEENT examination is grossly unremarkable. Neck supple. Full range of motion. No adenopathy thyromegaly or neck vein distention. Cardiovascular examination reveals regular rhythm rate. S1-S2 normal. No S3 or S4. No discernible murmur noted. Heart rate 51 bpm. Lungs reveal scattered bilateral rhonchi. No wheezes or crackles. Breath sounds equal bilaterally. Breath sounds are improved. Abdomen soft bowel sounds are heard. No masses or tenderness. Extremities are intact. No cyanosis clubbing or edema. Skin is without rash or lesion. Neurologic examination is brief but nonfocal. - Labs CBC & Chem 7: 05/20/21 07:54 05/20/21 07:54 Labs: Abnormal Lab Results - Last 24 Hours (Table) 05/20/21 Range/Units 07:54 BUN 26 H (7-17) mg/dL AST 80 H (14-36) U/L ALT 131 H (4-34) U/L Assessment and Plan Assessment: Acute hypoxemic respiratory failure secondary to coronavirus associated pneumonia. Morbid obesity. Mild transaminitis secondary to coronavirus infection. Mild elevation of troponin, likely related to supply/demand mismatch. History of hypertension. Plan: Plan dated 05/19/2021. The patient remains on 8 L high flow nasal O2. The patient's also getting Decadron, Lovenox, vitamin C, vitamin D3, zinc, and ADELSO. The patient remains relatively stable. We will continue to follow make recommendations where appropriate. We will continue to wean the FiO2. Prognosis is guarded. We will continue to follow this patient. Plan dated 05/20/2021. Patient has been weaned down to 6 L nasal cannula. The patient's saturations are more than adequate. The patient continues on Decadron, Lovenox, vitamin C, vitamin D3, and zinc. The patient is also on ADELSO. We will continue to wean the FiO2 down. Prognosis is guarded. We will continue to follow the patient and make recommendations were appropriate. Time with Patient: Less than 30
[2021-05-20] MEDS: MAG HYDROX/AL HYDROX/SIMETH 30 ML, diphenhydrAMINE ELIXIR 75 MG, LIDOCAINE VISCOUS 30 ML PO SCH ×6 (17:31→20:55)
[2021-05-21 07:42] LABS: Basophils % (A) 0 %; Eosinophils # (A) 0.1 k/uL (0-0.7); Eosinophils % (A) 1 %; HCT 44.2 % (34.0-46.0); HGB 14.6 gm/dL (11.4-16.0); Lymphocytes # (A) 0.8 k/uL (1.0-4.8); Lymphocytes % (A) 11 %; MCHC 32.9 g/dL (31.0-37.0); MCV 100.4 fL (80.0-100.0); Macrocytosis Slight; Mean Platelet Volume 7.6; Monocytes # (A) 0.8 k/uL (0-1.0); Monocytes % (A) 11 %; Neutrophils # (A) 5.6 k/uL (1.3-7.7); Neutrophils % (A) 75 %; Platelet Count 361 k/uL (150-450); RBC 4.41 m/uL (3.80-5.40); RDW 15.3 % (11.5-15.5); WBC 7.5 k/uL (3.8-10.6)
[2021-05-21 07:52] LABS: Albumin 3.3 g/dL (3.5-5.0); Calcium 9.2 mg/dL (8.4-10.2); Potassium 4.8 mmol/L (3.5-5.1); Total Bilirubin 0.8 mg/dL (0.2-1.3); Total Protein 6.3 g/dL (6.3-8.2)
[2021-05-21] MEDS: ASCORBIC ACID 500 MG TAB PO SCH (08:33)
[2021-05-21] MEDS: ENOXAPARIN 40 MG/0.4 ML SYRINGE SQ SCH (08:33)
[2021-05-21] MEDS: ZINC SULFATE 220 MG CAP PO SCH (08:33)
[2021-05-21] MEDS: CHOLECALCIFEROL 25 MCG (1000 IU) TABLET PO SCH (08:33)
[2021-05-21] MEDS: DEXAMETHASONE SOD PHOSPHATE 10 MG/ML 1 ML VIAL IVP SCH (08:33)
[2021-05-21] MEDS: MAG HYDROX/AL HYDROX/SIMETH 30 ML, diphenhydrAMINE ELIXIR 75 MG, LIDOCAINE VISCOUS 30 ML PO SCH ×9 (08:34→21:27)
[2021-05-21] MEDS: BARICITINIB 2 MG TABLET PO SCH (11:12)
[2021-05-21 11:37] VITALS: BMI 46.7
--- NOTE | 2021-05-21 16:52 | P.PN ---
Subjective Progress Note Date: 05/21/21 Principal diagnosis: Respiratory failure. 05/18/2021, I'm seeing the patient for a follow-up. The patient is doing well. No specific complaints for now. She remains on oxygen and she has been weaned yesterday down to 8 L of Oxymizer nasal cannula. Current pulse ox is around 97%. Feels okay. Remains on a combination of Decadron on Baricitinib. No new complaints otherwise for now. Afebrile hemodynamically stable. The white cell count of 5.6 with a 14.7, d-dimer is a 0.5, LDH level is low at 825 and a CRP level is at 0.7. Electrodes are all within normal limits. No other significant events otherwise for now. The patient is on Lovenox for DVT prophylaxis 40 mg subcu on a daily basis. Progress note dated 05/19/2021. The patient is currently on 8 L high flow nasal O2. Saturations are 95%. Chest x-ray shows improving infiltrates. The patient did test positive for coronavirus. She remains on Decadron, and ADELSO. The patient is also on Lovenox, zinc, vitamin C, and vitamin D3. Labs include a white count 5.8, he will been 15.3, hematocrit 48.3, and a normal platelet count. Sodium, potassium, chloride, CO2, anion gap, are all normal. BUN is 32 with a creatinine of 0.83. AST 135 with an ALT of 141. Progress note dated 05/20/2021. 61-year-old female seen in room 382. Currently, she is on 6 L nasal cannula. Saturations are 95%. The patient is not receiving any IV fluids. The patient remains on vitamin C, vitamin D3, zinc, Lovenox, Decadron, and ADELSO. CBC is normal. Sodium 138, potassium 4.6, chlorides 102, CO2 28, BUN 26, creatinine 0.79, and anion gap is 8. Microbiology is currently negative. No recent chest x-ray to report. The patient is clinically improved. Progress note dated 05/21/2021. 61-year-old obese female, seen in room 382. The patient is currently been weaned down to 3 L nasal cannula. She's not receiving any IV fluids. She feels like her breathing is much improved. The patient remains on Decadron, Lovenox, vitamins, and ADELSO. The patient denies any fever or chills. She denies any chest pain. Her cough is mild to moderate and nonproductive. Current laboratory includes a white count 7.5, hemoglobin 14.6, hematocrit 0.2, and platelet count 361,000. Sodium 136, potassium 4.8, chlorides 100, CO2 30, BUN 26, and creatinine 0.89. AST 63, ALT 121. Those are improved. Objective - Vital Signs Vital signs: Vital Signs Temp 98.3 F 05/21/21 15:44 Pulse 61 05/21/21 15:44 Resp 16 05/21/21 15:44 BP 121/70 05/21/21 15:44 Pulse Ox 96 05/21/21 15:44 Intake & Output 05/20/21 05/21/21 05/21/21 18:59 06:59 18:59 Intake Total 480 120 660 Output Total 800 Balance 480 120 -140 Weight 123.377 kg Intake: Oral 480 120 660 Output: Urine 800 Other: Voiding Method Bedside Commode Bedside Commode # Voids 1 # Bowel Movements 0 1 - Exam No acute distress, oriented 3. No conversational dyspnea or use of accessory muscles. Saturations are 96% on 2 L. HEENT examination is grossly unremarkable. Neck supple. Full range of motion. No adenopathy thyromegaly or neck vein distention. Cardiovascular examination reveals regular rhythm rate. S1-S2 normal. No S3 or S4. No discernible murmur noted. Heart rate 61 bpm. Lungs reveal scattered bilateral rhonchi. No wheezes or crackles. Breath sounds equal bilaterally. Breath sounds are improved. Abdomen soft bowel sounds are heard. No masses or tenderness. Extremities are intact. No cyanosis clubbing or edema. Skin is without rash or lesion. Neurologic examination is brief but nonfocal. - Labs CBC & Chem 7: 05/21/21 06:37 05/21/21 06:37 Labs: Abnormal Lab Results - Last 24 Hours (Table) 05/21/21 05/21/21 Range/Units 06:37 06:37 MCV 100.4 H (80.0-100.0) fL Lymphocytes # 0.8 L (1.0-4.8) k/uL Sodium 136 L (137-145) mmol/L BUN 26 H (7-17) mg/dL AST 63 H (14-36) U/L ALT 121 H (4-34) U/L Albumin 3.3 L (3.5-5.0) g/dL Assessment and Plan Assessment: Acute hypoxemic respiratory failure secondary to coronavirus associated pneumonia. Morbid obesity. Mild transaminitis secondary to coronavirus infection, improved. Mild elevation of troponin, likely related to supply/demand mismatch. History of hypertension. Plan: Plan dated 05/19/2021. The patient remains on 8 L high flow nasal O2. The patient's also getting Decadron, Lovenox, vitamin C, vitamin D3, zinc, and ADELSO. The patient remains relatively stable. We will continue to follow make recommendations where appropriate. We will continue to wean the FiO2. Prognosis is guarded. We will continue to follow this patient. Plan dated 05/20/2021. Patient has been weaned down to 6 L nasal cannula. The patient's saturations are more than adequate. The patient continues on Decadron, Lovenox, vitamin C, vitamin D3, and zinc. The patient is also on ADELSO. We will continue to wean the FiO2 down. Prognosis is guarded. We will continue to follow the patient and make recommendations were appropriate. Plan dated 05/21/2021. The patient has been weaned down to between 2 and 3 L by nasal cannula. Her saturations are in the mid 90s. She feels much improved. Her medications are appropriate. They are reviewed today. Labs are also reviewed today. No need in my opinion to repeat a full set of labs every day. This is unnecessary. The patient's much improved. Discharge planning underway. She should complete a full 10 days of Decadron. Time with Patient: Less than 30
[2021-05-21 19:50] LABS: Glucose,Whole Blood 186 mg/dL (75-99)
[2021-05-21] MEDS: INSULIN ASPART (NovoLOG) 100 UNIT/ML VIAL SQ SCH (21:28)
[2021-05-21 23:50] VITALS: RESP 18
[2021-05-22 06:02] LABS: Glucose,Whole Blood 97 mg/dL (75-99)
[2021-05-22] MEDS: INSULIN ASPART (NovoLOG) 100 UNIT/ML VIAL SQ SCH ×2 (06:07→11:50)
[2021-05-22] MEDS: ENOXAPARIN 40 MG/0.4 ML SYRINGE SQ SCH (08:53)
[2021-05-22] MEDS: ZINC SULFATE 220 MG CAP PO SCH (08:53)
[2021-05-22] MEDS: DEXAMETHASONE SOD PHOSPHATE 10 MG/ML 1 ML VIAL IVP SCH (08:53)
[2021-05-22] MEDS: ASCORBIC ACID 500 MG TAB PO SCH (08:53)
[2021-05-22] MEDS: CHOLECALCIFEROL 25 MCG (1000 IU) TABLET PO SCH (08:53)
[2021-05-22] MEDS: MAG HYDROX/AL HYDROX/SIMETH 30 ML, diphenhydrAMINE ELIXIR 75 MG, LIDOCAINE VISCOUS 30 ML PO SCH ×3 (08:54)
--- NOTE | 2021-05-22 10:41 | P.PN ---
Subjective Progress Note Date: 05/20/21 Patient is a 61-year-old female with a known history of hypertension, morbid obesity with BMI 46.7 presented to ER with complaints of cough congestion worsening shortness of breath. Patient symptoms started about 2 weeks ago. She did take [employer]l [employer] Ra[employer] vaccine. Patient was brought to the hospital by EMS. Patient lives with a roommate. Upon arrival patient was found to be hypoxic with pulse ox in the 80s and was in respiratory distress. T-max was 103 F. Patient was placed on 100% nonrebreather and BiPAP. Chest x-ray showed moderate cardiomegaly, bilateral interstitial opacities suggestive of CHF. Patchy-like bibasilar opacities concerning for superimposed infection. EKG showed sinus tachycardia with premature atrial complexes Laboratory data showed WBC 5.0 hemoglobin 14.6 and platelets 191 lymphocytes 0.7 D-dimer is 0.87 BUN 3020 creatinine 1.21 Troponin 0 0.456, 0.683 and 0.561 Urinalysis showed cloudy with 1+ protein and negative leukocyte esterase COVID-19 PCR detected. 05/16/2021 Patient is currently sitting in a chair. Awake alert and oriented x3. Still requiring oxygen at 15 L via nasal cannula. Denied any complaints of chest pain or worsening shortness of breath. Patient is being followed dexamethasone, baricitinib and multivitamin supplementation. Also on Lovenox subcu. Laboratory data showed WBC 5.5 hemoglobin 14.3 and platelets 256 Sodium 138 potassium 4.3 chloride 103 BUN 52 and creatinine 1.06 LDH 854 and CRP 2.5 Albumin 3.4 No nausea vomiting abdominal pain or diarrhea. Patient has been afebrile. Cough without any sputum production. 05/17/2021 Patient is currently sitting in the chair. Awake alert 1x3. No complaints of chest pain or worsening shortness of breath. Question reaction requiring 15 L oxygen via nasal cannula. Currently weaned down to 10 L. Patient is being currently on dexamethasone, baricitinib and multivitamins and Lovenox subcu. Laboratory showed WBC 6.4 hemoglobin 14.8 and platelets 343 BUN 36 and creatinine 0.94. Pulmonary is on board. 05/18/21 Patient is currently resting in the bed. Awake alert oriented x3. Requiring oxygen at 8 L via nasal cannula. Pulse ox at 97%. Patient is being current dexamethasone and baricitinib Lovenox subcu and multivitamins augmentation. Laboratory data showed WBC 5.6 hemoglobin 14.7 and platelets 370 lymphocytes 0.9 BUN 34 and creatinine 0.82 No complaints of chest pain. No nausea vomiting abdominal pain or diarrhea. No dysuria or hematuria. Patient has been afebrile. 05/19/2021 Patient is currently resting in bed. Awake alert oriented x3. Requiring 8 L oxygen via nasal cannula. Patient is being continued on dexamethasone Lovenox and baricitinib and multivitamin supplementation. Laboratory data showed WBC 5.8 hemoglobin 15.3 and platelets 403 BUN 32 and creatinine 0.83 and blood sugar is 127 AST 135 ALT 141. Patient has been afebrile. Denied any nausea vomiting abdominal pain or diarrhea. Denied any dysuria or hematuria. No cough or sputum production. Pulmonary is on board. 05/20/2021 Patient is currently sitting in the recliner. She is short of breath with exertion. No complaints of chest pain. Requiring 6 L oxygen via nasal cannula. No complaints of nausea or vomiting or abdominal pain or diarrhea. Patient is able to tolerate oral diet slowly. Remains on dexamethasone 6 mg daily, baricitinib and multivitamin supplementation and Lovenox subcu for DVT prophylaxis. Laboratory data showed WBC 7.3 hemoglobin 15.0 and platelets 377 BUN 26 and creatinine 0.7 Patient has been afebrile. No headache or dizziness or lightheadedness. Continue to titrate down FiO2. Current medications reviewed. Objective - Vital Signs Vital signs: Vital Signs Temp 97.6 F 05/20/21 15:54 Pulse 53 L 05/20/21 12:16 Resp 20 05/20/21 15:54 BP 148/97 05/20/21 15:54 Pulse Ox 95 05/20/21 15:54 Intake & Output 05/20/21 05/20/21 05/21/21 06:59 18:59 06:59 Intake Total 600 480 Balance 600 480 Intake: Oral 600 480 Other: Voiding Method Bedside Commode # Voids 1 # Bowel Movements 0 1 - Exam PHYSICAL EXAMINATION: Patient is lying in the bed comfortably, no acute distress, awake alert and oriented.. HEENT: Normocephalic. Neck is supple. Pupils reactive. Nostrils clear. Oral cavity is moist. Neck reveals no JVD, carotid bruits, or thyromegaly. CHEST EXAMINATION: Trachea is central. Symmetrical expansion. Scattered coarse sounds. Nonlabored breathing.. CARDIAC: Normal S1, S2 with no gallops. No murmurs ABDOMEN: Soft. Bowel sounds normal. No organomegaly. No abdominal bruits. Extremities: reveal no edema. No clubbing or cyanosis Neurologically awake, alert, oriented x3 with well-coordinated movements. No focal deficits noted Skin: No rash or skin lesions. Psychiatric: Cooperative. Nonsuicidal Musculoskeletal: No joint swelling or deformity. Normal range of motion. - Labs CBC & Chem 7: 05/21/21 06:37 05/21/21 06:37 Labs: Abnormal Lab Results - Last 24 Hours (Table) 05/20/21 Range/Units 07:54 BUN 26 H (7-17) mg/dL AST 80 H (14-36) U/L ALT 131 H (4-34) U/L Assessment and Plan Assessment: Acute hypoxic respiratory failure requiring BiPAP secondary to COVID-19 pneumonia. Symptoms started 2 weeks ago. Patient is vaccinated with Ra[employer] Ra[employer] single dose. Generalized weakness lethargic secondary 1 Elevated troponin level possible demand mismatch due to infection and hypoxia. Morbid obesity BMI 46.7 Hypertension DVT prophylaxis on heparin Drip Plan: Patient is currently on 15---10L--8L--6L high flow oxygen. Initially was on BiPAP. Continue to titrate down FiO2. Continue with dexamethasone and Lovenox subcu. Continue with vitamin supplementation. Patient was started on baricitinib as per pulmonary recommendations. Patient was started on Cardizem drip and cardiology will be consulted. Prognosis is guarded at this time. Time with Patient: Greater than 30
--- NOTE | 2021-05-22 10:43 | P.PN ---
Subjective Progress Note Date: 05/21/21 Patient is a 61-year-old female with a known history of hypertension, morbid obesity with BMI 46.7 presented to ER with complaints of cough congestion worsening shortness of breath. Patient symptoms started about 2 weeks ago. She did take Ra[employer]l [employer] Ra[employer]l vaccine. Patient was brought to the hospital by EMS. Patient lives with a roommate. Upon arrival patient was found to be hypoxic with pulse ox in the 80s and was in respiratory distress. T-max was 103 F. Patient was placed on 100% nonrebreather and BiPAP. Chest x-ray showed moderate cardiomegaly, bilateral interstitial opacities suggestive of CHF. Patchy-like bibasilar opacities concerning for superimposed infection. EKG showed sinus tachycardia with premature atrial complexes Laboratory data showed WBC 5.0 hemoglobin 14.6 and platelets 191 lymphocytes 0.7 D-dimer is 0.87 BUN 3020 creatinine 1.21 Troponin 0 0.456, 0.683 and 0.561 Urinalysis showed cloudy with 1+ protein and negative leukocyte esterase COVID-19 PCR detected. 05/16/2021 Patient is currently sitting in a chair. Awake alert and oriented x3. Still requiring oxygen at 15 L via nasal cannula. Denied any complaints of chest pain or worsening shortness of breath. Patient is being followed dexamethasone, baricitinib and multivitamin supplementation. Also on Lovenox subcu. Laboratory data showed WBC 5.5 hemoglobin 14.3 and platelets 256 Sodium 138 potassium 4.3 chloride 103 BUN 52 and creatinine 1.06 LDH 854 and CRP 2.5 Albumin 3.4 No nausea vomiting abdominal pain or diarrhea. Patient has been afebrile. Cough without any sputum production. 05/17/2021 Patient is currently sitting in the chair. Awake alert 1x3. No complaints of chest pain or worsening shortness of breath. Question reaction requiring 15 L oxygen via nasal cannula. Currently weaned down to 10 L. Patient is being currently on dexamethasone, baricitinib and multivitamins and Lovenox subcu. Laboratory showed WBC 6.4 hemoglobin 14.8 and platelets 343 BUN 36 and creatinine 0.94. Pulmonary is on board. 05/18/21 Patient is currently resting in the bed. Awake alert oriented x3. Requiring oxygen at 8 L via nasal cannula. Pulse ox at 97%. Patient is being current dexamethasone and baricitinib Lovenox subcu and multivitamins augmentation. Laboratory data showed WBC 5.6 hemoglobin 14.7 and platelets 370 lymphocytes 0.9 BUN 34 and creatinine 0.82 No complaints of chest pain. No nausea vomiting abdominal pain or diarrhea. No dysuria or hematuria. Patient has been afebrile. 05/19/2021 Patient is currently resting in bed. Awake alert oriented x3. Requiring 8 L oxygen via nasal cannula. Patient is being continued on dexamethasone Lovenox and baricitinib and multivitamin supplementation. Laboratory data showed WBC 5.8 hemoglobin 15.3 and platelets 403 BUN 32 and creatinine 0.83 and blood sugar is 127 AST 135 ALT 141. Patient has been afebrile. Denied any nausea vomiting abdominal pain or diarrhea. Denied any dysuria or hematuria. No cough or sputum production. Pulmonary is on board. 05/20/2021 Patient is currently sitting in the recliner. She is short of breath with exertion. No complaints of chest pain. Requiring 6 L oxygen via nasal cannula. No complaints of nausea or vomiting or abdominal pain or diarrhea. Patient is able to tolerate oral diet slowly. Remains on dexamethasone 6 mg daily, baricitinib and multivitamin supplementation and Lovenox subcu for DVT prophylaxis. Laboratory data showed WBC 7.3 hemoglobin 15.0 and platelets 377 BUN 26 and creatinine 0.7 Patient has been afebrile. No headache or dizziness or lightheadedness. Continue to titrate down FiO2. 05/21/2021 Patient is sitting in a recliner. Breathing status is improving. Still having shortness of breath with walking to the bathroom. Oxygen titrated down to 3 L today. No complaints of chest pain or worsening shortness of breath. Denies any fever or chills. Mild cough. No sputum production. No nausea vomiting or abdominal pain or diarrhea. Laboratory showed a 6.5 hemoglobin 14.6 and platelets 361 sodium 136 potassium 4.8 BUN 26 and a creatinine 0.89 and AST 63 alk phos 121 albumin 3.3. Patient will be continued on dexamethasone baricitinib Lovenox subcu and multivitamin supplementation. Pulmonary is on board. Anticipate discharge in the next 24 to 48 hours with more clinical improvement. Current medications reviewed. Objective - Vital Signs Vital signs: Vital Signs Temp 98.6 F 05/21/21 20:00 Pulse 56 L 05/21/21 20:00 Resp 20 05/21/21 20:00 BP 134/68 05/21/21 20:00 Pulse Ox 95 05/21/21 20:00 Intake & Output 05/21/21 05/21/21 05/22/21 06:59 18:59 06:59 Intake Total 120 900 Output Total 800 450 Balance 120 100 -450 Weight 123.377 kg Intake: Oral 120 900 Output: Urine 800 450 Other: Voiding Method Bedside Commode Bedside Commode Bedside Commode # Voids 1 1 # Bowel Movements 1 - Exam PHYSICAL EXAMINATION: Patient is lying in the bed comfortably, no acute distress, awake alert and oriented.. HEENT: Normocephalic. Neck is supple. Pupils reactive. Nostrils clear. Oral cavity is moist. Neck reveals no JVD, carotid bruits, or thyromegaly. CHEST EXAMINATION: Trachea is central. Symmetrical expansion. Scattered coarse sounds. Nonlabored breathing.. CARDIAC: Normal S1, S2 with no gallops. No murmurs ABDOMEN: Soft. Bowel sounds normal. No organomegaly. No abdominal bruits. Extremities: reveal no edema. No clubbing or cyanosis Neurologically awake, alert, oriented x3 with well-coordinated movements. No focal deficits noted Skin: No rash or skin lesions. Psychiatric: Cooperative. Nonsuicidal Musculoskeletal: No joint swelling or deformity. Normal range of motion. - Labs CBC & Chem 7: 05/21/21 06:37 05/21/21 06:37 Labs: Abnormal Lab Results - Last 24 Hours (Table) 05/21/21 05/21/21 05/21/21 Range/Units 06:37 06:37 19:48 MCV 100.4 H (80.0-100.0) fL Lymphocytes # 0.8 L (1.0-4.8) k/uL Sodium 136 L (137-145) mmol/L BUN 26 H (7-17) mg/dL POC Glucose (mg/dL) 186 H (75-99) mg/dL AST 63 H (14-36) U/L ALT 121 H (4-34) U/L Albumin 3.3 L (3.5-5.0) g/dL Assessment and Plan Assessment: Acute hypoxic respiratory failure requiring BiPAP secondary to COVID-19 pneumonia. Symptoms started 2 weeks ago. Patient is vaccinated with Ra[employer]l [employer] Ra[employer]l single dose. Generalized weakness lethargic secondary 1 Elevated troponin level possible demand mismatch due to infection and hypoxia. Morbid obesity BMI 46.7 Hypertension DVT prophylaxis on heparin Drip Plan: Patient is currently on 15---10L--8L--6L--3L high flow oxygen. Initially was on BiPAP. Continue to titrate down FiO2. Continue with dexamethasone and Lovenox subcu. Continue with vitamin supplementation. Patient was started on baricitinib as per pulmonary recommend ations. Patient was started on Cardizem drip and cardiology will be consulted. Prognosis is guarded at this time.
[2021-05-22] MEDS: BARICITINIB 2 MG TABLET PO SCH (11:51)
[2021-05-22 11:52] LABS: Glucose,Whole Blood 109 mg/dL (75-99)
[2021-05-22 11:53] VITALS: BP 156/68; PULSE 56; TEMP 98.1
--- NOTE | 2021-05-22 15:17 | P.PN ---
Subjective Progress Note Date: 05/22/21 Principal diagnosis: Respiratory failure. 05/18/2021, I'm seeing the patient for a follow-up. The patient is doing well. No specific complaints for now. She remains on oxygen and she has been weaned yesterday down to 8 L of Oxymizer nasal cannula. Current pulse ox is around 97%. Feels okay. Remains on a combination of Decadron on Baricitinib. No new complaints otherwise for now. Afebrile hemodynamically stable. The white cell count of 5.6 with a 14.7, d-dimer is a 0.5, LDH level is low at 825 and a CRP level is at 0.7. Electrodes are all within normal limits. No other significant events otherwise for now. The patient is on Lovenox for DVT prophylaxis 40 mg subcu on a daily basis. Progress note dated 05/19/2021. The patient is currently on 8 L high flow nasal O2. Saturations are 95%. Chest x-ray shows improving infiltrates. The patient did test positive for coronavirus. She remains on Decadron, and ADELSO. The patient is also on Lovenox, zinc, vitamin C, and vitamin D3. Labs include a white count 5.8, he will been 15.3, hematocrit 48.3, and a normal platelet count. Sodium, potassium, chloride, CO2, anion gap, are all normal. BUN is 32 with a creatinine of 0.83. AST 135 with an ALT of 141. Progress note dated 05/20/2021. 61-year-old female seen in room 382. Currently, she is on 6 L nasal cannula. Saturations are 95%. The patient is not receiving any IV fluids. The patient remains on vitamin C, vitamin D3, zinc, Lovenox, Decadron, and ADELSO. CBC is normal. Sodium 138, potassium 4.6, chlorides 102, CO2 28, BUN 26, creatinine 0.79, and anion gap is 8. Microbiology is currently negative. No recent chest x-ray to report. The patient is clinically improved. Progress note dated 05/21/2021. 61-year-old obese female, seen in room 382. The patient is currently been weaned down to 3 L nasal cannula. She's not receiving any IV fluids. She feels like her breathing is much improved. The patient remains on Decadron, Lovenox, vitamins, and ADELSO. The patient denies any fever or chills. She denies any chest pain. Her cough is mild to moderate and nonproductive. Current laboratory includes a white count 7.5, hemoglobin 14.6, hematocrit 0.2, and platelet count 361,000. Sodium 136, potassium 4.8, chlorides 100, CO2 30, BUN 26, and creatinine 0.89. AST 63, ALT 121. Those are improved. Progress note dated 05/22/2021. 61-year-old obese female, seen again in room 382. The patient is currently on 2 L nasal cannula. She's not receiving any IV fluids. She feeling much better. She remains on Decadron, Lovenox, vitamins, and ADELSO. No new labs today. No chest x-ray today. From the pulmonary standpoint, the patient very stable. She likely will need to be discharged home on oxygen. That could be determined befo re discharge. It's not clear to me whether or not she will be discharged today. We will continue to follow the patient as long she is an inpatient. She denies any chest pain or chest discomfort. There is no fever or chills. She denies any worsening shortness of breath, coughing, wheezing, or phlegm production. Objective - Vital Signs Vital signs: Vital Signs Temp 98.1 F 05/22/21 11:53 Pulse 56 L 05/22/21 13:50 Resp 18 05/22/21 13:50 BP 156/68 05/22/21 11:53 Pulse Ox 90 L 05/22/21 11:53 Intake & Output 05/21/21 05/22/21 05/22/21 18:59 06:59 18:59 Intake Total 900 200 Output Total 800 450 Balance 100 -250 Weight 123.377 kg Intake: Oral 900 200 Output: Urine 800 450 Other: Voiding Method Bedside Commode Bedside Commode Bedside Commode # Voids 1 1 - Exam No acute distress, oriented 3. No conversational dyspnea or use of accessory muscles. Saturations are 95% on 2 L. Room air saturation 90%. HEENT examination is grossly unremarkable. Neck supple. Full range of motion. No adenopathy thyromegaly or neck vein distention. Cardiovascular examination reveals regular rhythm rate. S1-S2 normal. No S3 or S4. No discernible murmur noted. Heart rate 56 bpm. Lungs reveal scattered bilateral rhonchi. No wheezes or crackles. Breath sounds equal bilaterally. Breath sounds are improved. Abdomen soft bowel sounds are heard. No masses or tenderness. Extremities are intact. No cyanosis clubbing or edema. Skin is without rash or lesion. Neurologic examination is brief but nonfocal. - Labs CBC & Chem 7: 05/21/21 06:37 05/21/21 06:37 Labs: Abnormal Lab Results - Last 24 Hours (Table) 05/21/21 05/22/21 Range/Units 19:48 11:50 POC Glucose (mg/dL) 186 H 109 H (75-99) mg/dL Assessment and Plan Assessment: Acute hypoxemic respiratory failure secondary to coronavirus associated pneumonia. Morbid obesity. Mild transaminitis secondary to coronavirus infection, improved. Mild elevation of troponin, likely related to supply/demand mismatch. History of hypertension. Plan: Plan dated 05/19/2021. The patient remains on 8 L high flow nasal O2. The patient's also getting Decadron, Lovenox, vitamin C, vitamin D3, zinc, and ADELSO. The patient remains relatively stable. We will continue to follow make recommendations where appropriate. We will continue to wean the FiO2. Prognosis is guarded. We will continue to follow this patient. Plan dated 05/20/2021. Patient has been weaned down to 6 L nasal cannula. The patient's saturations are more than adequate. The patient continues on Decadron, Lovenox, vitamin C, vitamin D3, and zinc. The patient is also on ADELSO. We will continue to wean the FiO2 down. Prognosis is guarded. We will continue to follow the patient and make recommendations were appropriate. Plan dated 05/21/2021. The patient has been weaned down to between 2 and 3 L by nasal cannula. Her saturations are in the mid 90s. She feels much improved. Her medications are appropriate. They are reviewed today. Labs are also reviewed today. No need in my opinion to repeat a full set of labs every day. This is unnecessary. The patient's much improved. Discharge planning underway. She should complete a full 10 days of Decadron. Plan dated 05/22/2021. The patient is down to 2 L nasal O2. Her saturations are excellent. She's feeling much improved. From the pulmonary standpoint, the patient could be considered for possible discharge. We'll leave that up to the primary. The patient should continue with Decadron, for a full 10 days. She has been in the hospital now for 8 days. Labs are reviewed. Medications are reviewed. X-rays are reviewed. Prognosis is guarded. She is advised to come back to the hospital, should she worsen. Time with Patient: Less than 30
== END 2021-05-22 15:37 | disposition home or self-care (01) | DRG 177 ==
LOC: EC 17:30 → 3SCARD 19:16
PROVIDERS: ADMIT Internal Medicine; ATTEND Internal Medicine
PROC: 3E0333Z Introduction of Anti-inflammatory into Peripheral Vein, Percutaneous Approach (ICD-10-PCS; 2021-05-14)
PROC: 5A09357 Assistance with Respiratory Ventilation, Less than 24 Consecutive Hours, Continuous Positive Airway Pressure (ICD-10-PCS; 2021-05-14)
PROC: XW0DXM6 Introduction of Baricitinib into Mouth and Pharynx, External Approach, New Technology Group 6 (ICD-10-PCS; principal; 2021-05-15)
PROC: 5A0945A Assistance with Respiratory Ventilation, 24-96 Consecutive Hours, High Flow/Velocity Cannula (ICD-10-PCS; 2021-05-15)
DX: U07.1 COVID-19 (principal); J12.82 Pneumonia due to coronavirus disease 2019; J96.01 Acute respiratory failure with hypoxia; I21.A1 Myocardial infarction type 2; Z68.42 Body mass index [BMI] 45.0-49.9, adult; E66.01 Morbid (severe) obesity due to excess calories; I49.1 Atrial premature depolarization; Z79.01 Long term (current) use of anticoagulants; R74.01 Elevation of levels of liver transaminase levels; I10 Essential (primary) hypertension
CPT/HCPCS: 36415; 71045; 80053; 80061; 81001; 83605; 83615; 83735; 83880; 84145; 84484; 85025; 85379; 85610; 85730; 86140; 87636; 93005; 93308; 94660; 94760; 96365; 96366; 96375; 99291

== ENCOUNTER → 2021-07-16 | Outpatient (CLI) | payer BC ==
--- NOTE | 2021-07-16 15:51 | CT ---
EXAMINATION TYPE: CT angio chest DATE OF EXAM: 07/16/2021 COMPARISON: No previous CT scan is available for comparison. HISTORY: SOB, post Covid. Low oxygen upon exertion. Stat hold and call CT DLP: 613.40 mGy.cm. Automated Exposure Control for Dose Reduction was Utilized. TECHNIQUE AND CONTRAST: CTA scan of the thorax is performed with IV Contrast, patient injected with 100 mL of Isovue 370, pul monary embolism protocol. MIP Images are created on CT scanner and reviewed. FINDINGS: Suboptimal scanning with timing of CT thoracic aortogram. No definite filling defect within the pulmo nary trunk, main pulmonary arteries, lobar and proximal segmental branches to suggest pulmonary embol ism. Distal segmental and subsegmental branches are suboptimally assessed. The pulmonary trunk measures 2.9 cm with the right pulmonary artery measures 2.1 cm. This may suggest pulmonary hypertension. No gross cardiomegaly. Mitral valve calcifications. Tortuous descending thor acic aorta with tiny coronary arterial calcifications. 12 mm precarinal lymph node with 14 mm subcari nal lymph node. Other scattered smaller bilateral hilar and mediastinal lymph nodes, nonspecific. Bilateral basal posterior subpleural reticulations and minimal fibrotic changes. 4 mm calcified granu vic is seen in the right lung base posteriorly. 6 mm nodule is seen at the lateral aspect of the lef t lower lobe (image #[id number], series 6). Grossly unremarkable remainder of the lungs. Patent trachea and main bronchi. No pleural or pericardi al effusion. Enlarged liver with hepatic steatosis. Suspected left renal cyst, not completely include d in the scan. No aggressive bone lesion. IMPRESSION: 1. Suboptimal CT scan as described above. With this limitation, no major or central pulmonary embolis m. If there is a persistent clinical concern for pulmonary embolism, repeat CT pulmonary angiogram ca n be considered. 2. Prominent mediastinal lymph nodes measuring up to 14 mm as described above, for precautionary foll ow-up CT scan in 2-3 months for reassessment. Other incidental findings as described above.
== END | disposition home or self-care (01) ==
LOC: RADCTMAIN 14:12
PROVIDERS: ATTEND Internal Medicine
DX: J96.11 Chronic respiratory failure with hypoxia (principal)
CPT/HCPCS: 71275; Q9967

== ENCOUNTER → 2023-08-17 | Outpatient (CLI) | payer MEDICARE ==
[2023-08-17 16:00] LABS: Basophils # (A) 0.09 X 10*3/uL (0.00-0.10); Basophils % (A) 1.2 %; Eosinophils % (A) 2.6 %; HCT 41.6 % (37.2-46.3); HGB 13.7 g/dL (12.0-15.0); Lymphocytes # (A) 1.24 X 10*3/uL (0.90-5.00); Lymphocytes % (A) 16.1 %; MCH 32.6 pg (27.0-32.0); MCHC 32.9 g/dL (32.0-37.0); Mean Platelet Volume 9.7 FL (9.5-12.2); Monocytes # (A) 0.72 X 10*3/uL (0.20-1.00); Monocytes % (A) 9.4 %; NRBC Per 100 WBC 0.02 X 10*3/uL (0.00-0.01); Neutrophils % (A) 70.3 %; Platelet Count 273 X 10*3/uL (140-440); RDW 16.1 % (11.5-14.5); WBC 7.68 X 10*3/uL (4.50-10.00)
[2023-08-17 16:30] LABS: % Iron Saturation 24.68 (12.00-45.00); ALT 14 U/L (8-44); AST 22 U/L (13-35); Albumin 4.2 g/dL (3.8-4.9); Alkaline Phosphatase 80 U/L (41-126); Blood Urea Nitrogen 11.6 mg/dL (9.0-27.0); Calcium 9.8 mg/dL (8.7-10.3); Carbon Dioxide 28.3 mmol/L (21.6-31.8); Chloride 104 mmol/L (96-109); Chol/HDL Ratio 4.13 Ratio; Glucose 114 mg/dL (70-110); Iron 76 UG/DL (50-170); LDL Cholesterol,Calculated 124.8 mg/dL (0.0-131.0); Potassium 4.6 mmol/L (3.5-5.5); Sodium 143 mmol/L (135-145); Total Bilirubin 0.4 mg/dL (0.3-1.2); Total Iron Binding Capacity 308 UG/DL (228-460); Total Protein 7.2 g/dL (6.2-8.2)
== END | disposition home or self-care (01) ==
LOC: LABWHC1 10:38
PROVIDERS: ATTEND Pediatrics
DX: E78.5 Hyperlipidemia, unspecified (principal); R79.89 Other specified abnormal findings of blood chemistry
CPT/HCPCS: 36415; 80053; 80061; 82728; 83540; 83550; 85025

== ENCOUNTER → 2023-08-17 | Outpatient (CLI) | payer MEDICARE, OTHER ==
--- NOTE | 2023-08-17 10:43 | US ---
EXAMINATION TYPE: US abdomen complete DATE OF EXAM: 08/17/2023 COMPARISON: NONE CLINICAL INDICATION: Female, 63 years old with history of R79.89 OTHER SPECIFIED ABNORMAL FINDINGS OF BLOOD; TECHNIQUE: Multiple sonographic images of the abdomen are obtained. FINDINGS: EXAM MEASUREMENTS: Liver Length: 20.2 cm Gallbladder Wall: 0.2 cm CBD: 0.4 cm Spleen: 13.0 cm Right Kidney: 12.0 x 4.8 x 4.7 cm Left Kidney: 11.1 x 5.3 x 5.3 cm Difficult and limited study due to morbidly obese patient Pancreas: visualized portions wnl, limited by overlying midline bowel gas Liver: enlarged, mildly heterogeneous Gallbladder: wnl Evidence for sonographic Bundy's sign: no CBD: wnl Spleen: borderline enlarged Right Kidney: wnl Left Kidney: wnl Upper IVC: wnl Abd Aorta: visualized portions wnl, limited by overlying midline bowel gas The intrahepatic portion of the IVC and proximal abdominal aorta are within normal limits. There is no evidence of cholelithiasis. Common bile duct is unremarkable. The visualized portions of the bonds creas are homogenous. Kidneys are symmetric and free of hydronephrosis. No renal lesions are seen. IMPRESSION: Compatible hepatomegaly with mild hepatic steatosis is suggested. Borderline splenic enlargement.
== END | disposition home or self-care (01) ==
LOC: RADUSWWP 10:01
PROVIDERS: ATTEND Pediatrics
DX: R16.2 Hepatomegaly with splenomegaly, not elsewhere classified (principal); K76.0 Fatty (change of) liver, not elsewhere classified
CPT/HCPCS: 76700

== ENCOUNTER → 2024-09-26 | Outpatient (CLI) | payer MEDICARE, OTHER ==
--- NOTE | 2024-09-27 08:39 | XR ---
EXAMINATION TYPE: XR chest 2V DATE OF EXAM: 09/26/2024 4:52 PM COMPARISON: 06/01/2023 CLINICAL INDICATION: Female, 64 years old with history of L29.9 PRURITUS, , TECHNIQUE: Frontal and lateral views FINDINGS: Heart mildly enlarged. Interstitial density. No consolidation or pleural effusion. Limited by portabl e technique and large body habitus. IMPRESSION: Portable exam further limited by large body habitus. There is mild cardiomegaly and interstitial prom inence, possible mild pulmonary vascular congestion. Clinically correlate. [facility], , 09/27/2024 8:37 AM
--- NOTE | 2024-09-27 13:02 | CA ---
Transthoracic Echo Report Name: Lorena Melton Age: 64 Gender: F : 1960 Exam Date: 09/26/2024 15:27 Exam Location: [facility] Ht (in): 64 Wt (lb): 182 Ordering Physician: Manpreet Cage MD Attending/Referring Phys: Tri To PAC Trimmer And Reinforcer Monse Bower RDCS Procedure CPT: Indications: R01.1 CARDIAC MURMUR, UNSPECIFIED Cardiac Hx: Technical Quality: Fair Contrast 1: Total Dose (mL): Contrast 2: Total Dose (mL): MEASUREMENTS (Male / Female) Normal Values 2D ECHO LV Diastolic Diameter PLAX 4.6 cm 4.2 - 5.9 / 3.9 - 5.3 cm LV Systolic Diameter PLAX 3.1 cm IVS Diastolic Thickness 1.7 cm 0.6 - 1.0 / 0.6 - 0.9 cm LVPW Diastolic Thickness 1.0 cm 0.6 - 1.0 / 0.6 - 0.9 cm LV Relative Wall Thickness 0.6 LVOT Diameter 2.1 cm LV Diastolic Volume MOD BP 96.5 cm??? 67 - 155 / 56 - 104 cm??? LV Systolic Volume MOD BP 39.9 cm??? 22 - 58 / 19 - 49 cm??? LV Ejection Fraction MOD BP 58.7 % >= 55 % LV Cardiac Index MOD BP 2804.9 cm???/min???m??? LV Diastolic Volume MOD 4C 100.7 cm??? LV Systolic Volume MOD 4C 40.5 cm??? LV Ejection Fraction MOD 4C 59.8 % LV Cardiac Index MOD 4C 2977.5 cm???/min???m??? LV Diastolic Length 4C 8.5 cm LV Systolic Length 4C 6.5 cm LV Diastolic Volume MOD 2C 87.5 cm??? LV Systolic Volume MOD 2C 36.0 cm??? LV Ejection Fraction MOD 2C 58.9 % LV Cardiac Index MOD 2C 2550.2 cm???/min???m??? LV Diastolic Length 2C 8.0 cm LV Systolic Length 2C 7.1 cm LA Volume 51.9 cm??? 18 - 58 / 22 - 52 cm??? LA Volume Index 26.5 cm???/m??? 16 - 28 cm???/m??? Ascending Aorta Diameter 3.8 cm DOPPLER AV Peak Velocity 202.6 cm/s AV Peak Gradient 16.4 mmHg AV Mean Velocity 132.9 cm/s AV Mean Gradient 7.9 mmHg AV Velocity Time Integral 36.8 cm LVOT Peak Velocity 154.8 cm/s LVOT Peak Gradient 9.6 mmHg LVOT Velocity Time Integral 29.9 cm LVOT Stroke Volume 106.1 cm??? LVOT Stroke Volume Index 56.4 ml/m??? LVOT Cardiac Index 5249.4 cm???/min???m??? AV Area Cont Eq vti 2.9 cm??? AV Area Cont Eq pk 2.7 cm??? MV Peak Velocity 163.8 cm/s MV Peak Gradient 10.7 mmHg MV Mean Velocity 99.0 cm/s MV Mean Gradient 4.4 mmHg MV Velocity Time Integral 43.3 cm MV Area PHT 3.2 cm??? Mitral E Point Velocity 101.9 cm/s Mitral A Point Velocity 144.2 cm/s Mitral E to A Ratio 0.7 MV Deceleration Time 238.1 ms PV Peak Velocity 118.9 cm/s PV Peak Gradient 5.7 mmHg FINDINGS Left Ventricle Left ventricular ejection fraction is estimated at 55-60 %. Severely increased septal wall thickness. Mildly increased posterior wall thickness. Left ventricular cavity size normal. No obvious regional wall motion abnormalities. Right Ventricle Normal right ventricular size and function. Unable to estimate the right ventricular systolic pressure. Right Atrium Normal right atrial size. Left Atrium Normal left atrial size. Mitral Valve Mitral valve thickened. Mitral annular calcification. No evidence for mitral valve prolapse. [id number] mitral stenosis. Trace mitral regurgitation. Aortic Valve Trileaflet aortic valve. Aortic valve sclerosis. No aortic valve stenosis or regurgitation. Tricuspid Valve Structurally normal tricuspid valve. No tricuspid stenosis. No tricuspid regurgitation. Pulmonic Valve Structurally normal pulmonic valve. No pulmonic stenosis. No pulmonic regurgitation. Pericardium No pericardial effusion. Aorta Normal size aortic root and proximal ascending aorta. CONCLUSIONS Normal LV size and systolic function with mild concentric LVH. Thickening of mitral valve leaflets specifically the posterior mitral leaflet is thickened and calcified. There is also mitral annular calcification noted. There is minimal mitral and tricuspid insufficiency. Right-sided pressures are not quantified. No pericardial effusion Previewed by: Dr. Iza Guzman MD (Electronically Signed) Final Date: 27 Sep 2024 13:01
== END | disposition home or self-care (01) ==
LOC: RADECHMAIN 15:12
PROVIDERS: ATTEND Pediatrics
DX: R01.1 Cardiac murmur, unspecified (principal); L29.9 Pruritus, unspecified; I08.1 Rheumatic disorders of both mitral and tricuspid valves
CPT/HCPCS: 71046; 93306